=== PATIENT | female | born 1950 | race Asian ===

== ENCOUNTER 2016-04-24 09:50 | Emergency (ER) | payer OTHER ==
[~2016-04-24] VITALS: Ht 177.8 cm; Wt 45.5 kg
[2016-04-24 10:08] VITALS: Ht 177.8 cm; Wt 45.5 kg
[2016-04-24] MEDS ORDERED: ACETAMINOPHEN 325 MG TAB PO ONE (10:30)
[2016-04-24] MEDS ORDERED: NICARDipine HCL 30 MG CAPSULE PO ONE (10:30)
[2016-04-24] MEDS ORDERED: SITA100T8 PO (10:43)
[2016-04-24] MEDS ORDERED: METO-429 PO (10:43)
[2016-04-24] MEDS ORDERED: AMOX1TAB10 PO (10:44)
[2016-04-24] MEDS ORDERED: AMOX1TAB9 PO (10:44)
[2016-04-24] MEDS ORDERED: GABA100C14 PO (10:45)
[2016-04-24] MEDS ORDERED: LANT3I SC (10:45)
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
[2016-04-24 11:52] VITALS: BP 120/68; PULSE 73; RESP 18
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
== END 2016-04-24 11:57 | disposition home or self-care (01) ==
LOC: E/R 09:50
DX: S06.0X0A Concussion without loss of consciousness, initial encounter (principal); I10 Essential (primary) hypertension; E11.9 Type 2 diabetes mellitus without complications; V49.59XA Passenger injured in collision with other motor vehicles in traffic accident, initial encounter; Z79.84 Long term (current) use of oral hypoglycemic drugs; Z79.4 Long term (current) use of insulin
CPT/HCPCS: 70450; 70486; 72125; Z7502; Z7610

== ENCOUNTER 2017-07-10 12:40 | Emergency (ER) | END 2017-07-10 18:26 | disposition home or self-care (01) ==

== ENCOUNTER 2018-06-23 20:57 | Inpatient (IN) | payer OTHER ==
[~2018-06-23] VITALS: Ht 160 cm; Wt 62.6 kg
[~2018-06-23 20:57] MED LIST: AMOX1TAB10 PO; ASPI-903 PO; CEPH-443 PO; GABA100C14 PO; IBUP-1561 PO; LANT3I SC; LOSA25TA12 PO; METF500T3 PO; METO-429 PO; SITA100T11 PO
[2018-06-23 22:55] VITALS: Ht 160 cm; Wt 62.6 kg
[2018-06-24] VITALS (15 sets, daily range): BP systolic 109–213; BP diastolic 55–91; PULSE 72–130; RESP 18–20
[2018-06-24] MEDS ORDERED: HYDROCODONE/APAP (5/325) TAB PO PRN
[2018-06-24] MEDS ORDERED: GABAPENTIN 300 MG CAP PO PRN
[2018-06-24] MEDS ORDERED: GLUCOSE GEL 15 GRAM TUBE PO PRN ×2 (01:00)
[2018-06-24] MEDS ORDERED: GLUCOSE GEL 15 GRAM TUBE BUCCAL PRN (01:00)
[2018-06-24] MEDS ORDERED: DEXTROSE 50% 50 ML SYRINGE IV PRN ×2 (01:00)
[2018-06-24] MEDS ORDERED: GLUCAGON 1 MG INJ IM PRN (01:00)
[2018-06-24] MEDS: ACCU-CHEK XX SCH (02:00)
[2018-06-24] MEDS ORDERED: LOSA100T15 PO (05:02)
[2018-06-24] MEDS ORDERED: ASPI-817 PO (05:02)
[2018-06-24] MEDS ORDERED: METF500T24 PO (05:02)
[2018-06-24] MEDS ORDERED: SITA100T11 PO (05:02)
[2018-06-24] MEDS ORDERED: GABA300C16 PO (05:02)
[2018-06-24] MEDS ORDERED: ATOR20TA38 PO (05:02)
[2018-06-24] MEDS ORDERED: METO-429 PO (05:02)
[2018-06-24] MEDS ORDERED: FURO20TA3 PO (05:02)
[2018-06-24] MEDS ORDERED: LATA2.5D2 BOTH EYES (05:02)
[2018-06-24] MEDS: ONDANSETRON 4 MG INJ IV PRN ×2 (06:13→15:55)
[2018-06-24] MEDS: PANTOPRAZOLE (EC) 40 MG TAB PO SCH (06:13)
[2018-06-24] MEDS: PIPER-TAZO 3.375 GM IV (PMX) 100 ML IVPB SCH ×3 (06:14→21:13)
[2018-06-24] MEDS: ACETAMINOPHEN 325 MG TAB PO PRN ×2 (06:14→15:34)
[2018-06-24] MEDS: INSULIN ASPART [NOVOLOG] 3 ML PEN SC SCH ×4 (08:00→21:07)
[2018-06-24] MEDS ORDERED: FUROSEMIDE 20 MG TAB PO SCH (09:00)
[2018-06-24] MEDS ORDERED: FISH OIL 1,000 MG CAP PO ONE (09:00)
[2018-06-24] MEDS: METOPROLOL 50 MG TAB PO SCH (09:04)
[2018-06-24] MEDS: LOSARTAN 50 MG TAB PO SCH (09:05)
[2018-06-24] MEDS: ASPIRIN 81 MG TAB PO SCH (09:05)
[2018-06-24] MEDS ORDERED: SOD CHLORIDE 0.9% 1,000 ML IV SCH (11:00)
--- NOTE | 2018-06-24 11:38 | QN ---
Documentation Comment pt seen and examined MARIZA BARRERA MD June 24, 2018 11:38
[2018-06-24] MEDS ORDERED: ASPIRIN (EC) 81 MG TAB PO SCH (12:00)
[2018-06-24] MEDS: ASPIRIN (EC) 81 MG TAB PO SCH (13:07)
--- NOTE | 2018-06-24 13:38 | HP ---
DATE OF ADMISSION: 06/23/2018 REASON FOR ADMISSION: Transferred from [facility] secondary to sepsis. HISTORY OF PRESENTING ILLNESS: This is a 68-year-old female with a past medical history of diabetes, hypertension, hyperlipidemia, who was transferred from [facility] secondary to sepsis. Acc ording to the patient who was brought in by the daughter, the patient was having some weakness and ch ills for the past few days. The patient was also having some cough with no sputum production for the past few days. The patient denied any nausea, vomiting, diarrhea. She went to [facility]. Labs showed sodium of 132, potassium was 4.2, chloride 96, bicarbonate 22, BUN of 22, creatinine 1. 23. White count was 20.2, hemoglobin 11.2, platelet count 326. The patient had a chest x-ray that w as negative for any pneumonia. UA had showed 100 protein, 1+ blood, 150 glucose. The patient was gi asuncion IV fluids, Rocephin and was transferred due to insurance reasons. PAST MEDICAL HISTORY 1. Diabetes for the last 40 years. 2. Hypertension. 3. Hyperlipidemia. 4. Diabetic neuropathy. 5. History of hyponatremia. ALLERGIES: NONE. MEDICATIONS TAKING AT HOME: 1. Atorvastatin 20. 2. Losartan. 3. Metoprolol 50. 4. Aspirin 81. 5. Gabapentin. 6. Ibuprofen. 7. Lasix 20. 8. Latanoprost eyedrops. 9. Lantus 30 q.p.m. 10. Metformin. 11. Januvia. 12. Humalog. SOCIAL HISTORY: No history of smoking, alcohol or any drug use. Currently lives at home with family . REVIEW OF SYSTEMS: The patient had some cough. Denies any orthopnea, PND, lower extremity edema. T he patient was complaining of chills and weakness. Denies any dysuria, urinary urgency, hesitancy. Denies any rash. Denies any focal neurological deficit. PHYSICAL EXAMINATION: VITAL SIGNS: Currently temperature 100.2, heart rate 108 at rest, blood pressure 132/59, saturating 98%. GENERAL: The patient is awake, alert, oriented, does not appear to be in any acute distress. HEENT: Pupils are equal, round, reactive to light. NECK: Supple. No JVD. HEART: Regular rate and rhythm. LUNGS: Clear to auscultate bilaterally. ABDOMEN: Soft, nontender, nondistended, positive normoactive bowel sounds. EXTREMITIES: Trace edema. NEUROLOGIC: Nonfocal. LABORATORY DATA: BUN of 21, creatinine 1.09. Glucose is 240. Calcium 8.2. White count here is 25. 0, hemoglobin 9.0, platelet count 240. ASSESSMENT AND PLAN: This is a 68-year-old female who presented with: 1. Sepsis, likely secondary to urinary tract infection. 2. Cough, however, no evidence of bronchitis and chest x-ray was clear. 3. Urinary tract infection. 4. History of diabetes. 5. Hypertension. 6. Fever secondary to #1. 7. Hyperlipidemia. 8. History of diabetic neuropathy. 9. History of hyponatremia. PLAN: At this period of time, the patient is admitted to [facility]. We will continue the patient on NS. The patient will be started on Zosyn. We will send for urine cultures and blood cultures. We will also follow up the stool cultures from [place]. The patient will be on a strict diabetic control. Rest of the treatment will depend on the patient's hospitalization course. Dictated By: MARIZA DALTON/TANYA Conf#: [id number] DID#: [id number] CC: CHRISTAL REEDER MD;*End*
[2018-06-24] MEDS ORDERED: POTASSIUM CHLORIDE (SR) 20 MEQ TAB PO STA (20:11)
[2018-06-24] MEDS: ALBUTEROL/IPRATROPIUM (NEB) 3 ML AMP HHN SCH (20:25)
[2018-06-24] MEDS: ATORVASTATIN 20 MG TAB PO SCH ×2 (20:40→20:41)
[2018-06-24] MEDS: GABAPENTIN 100 MG CAP PO SCH (20:40)
[2018-06-24] MEDS: LATANOPROST 0.005% 2.5 ML OPH BOTH EYES SCH ×2 (20:48→21:00)
[2018-06-24] MEDS: INSULIN GLARGINE [LANTus] (100 UNITS/ML) SYG SC SCH (21:07)
[2018-06-24] MEDS ORDERED: MAGNESIUM SULFATE 2 GM/50 ML 50 ML IVPB ONE (21:30)
[2018-06-25] VITALS (12 sets, daily range): BP systolic 118–150; BP diastolic 54–75; PULSE 73–125; RESP 18–20
[2018-06-25] MEDS: ACETAMINOPHEN 325 MG TAB PO PRN (02:48)
[2018-06-25] MEDS: ACCU-CHEK XX SCH (02:51)
[2018-06-25] MEDS: PIPER-TAZO 3.375 GM IV (PMX) 100 ML IVPB SCH ×3 (05:52→21:38)
[2018-06-25] MEDS: PANTOPRAZOLE (EC) 40 MG TAB PO SCH (05:52)
[2018-06-25] MEDS: INSULIN ASPART [NOVOLOG] 3 ML PEN SC SCH ×5 (08:00→21:01)
[2018-06-25] MEDS: ASPIRIN (EC) 81 MG TAB PO SCH (08:00)
[2018-06-25] MEDS: METOPROLOL 50 MG TAB PO SCH ×2 (08:01→20:48)
[2018-06-25] MEDS: LOSARTAN 50 MG TAB PO SCH (08:01)
[2018-06-25] MEDS: ALBUTEROL/IPRATROPIUM (NEB) 3 ML AMP HHN SCH ×4 (08:43→21:52)
[2018-06-25] MEDS: ASPIRIN 81 MG TAB PO SCH (08:43)
--- NOTE | 2018-06-25 14:18 | PN ---
Date/Time of Note Date/Time of Note DATE: 06/25/18 TIME: 14:15 Assessment/Plan VTE Prophylaxis Risk score (from Ns)>0 risk: 3 SCD applied (from [facility] [place] Yes Pharmacological prophylaxis: NA/contraindicated Pharm contraindication: low risk/ambulating Lines/Catheters IV C[facility]ter Type (from [facility] [place] Assessment/Plan Hospital Course his is a 68-year-old female who presented with: 1. Sepsis, likely secondary to urinary tract infection. 2. Cough, now with sob , crackles on exam 3. Urinary tract infection. 4. History of diabetes. 5. Hypertension. 6. Fever secondary to #1. 7. Hyperlipidemia. 8. History of diabetic neuropathy. 9. History of hyponatremia. Plan - wbc 21, fu cx > also from [place] - chest xray - iv spot lasix - will also get ECHO - iD consult - urology consult for hydro - add mealtime insulin - labs in am Result Diagram: 06/25/18 1106 06/25/18 1106 Results 24hrs Laboratory Tests Test 06/24/18 17:16 06/24/18 17:41 06/24/18 20:35 06/25/18 02:42 Bedside Glucose 208 203 226 H Sodium Level 133 L Potassium Level 3.8 Chloride Level 102 Carbon Dioxide Level 23 Anion Gap 8 Blood Urea Nitrogen 22 H Creatinine 1.22 H Est Glomerular Filtrat 44 L Rate mL/min Glucose Level 195 Calcium Level 8.4 Phosphorus Level 2.4 L Magnesium Level 1.7 Test 06/25/18 07:46 06/25/18 11:06 06/25/18 12:00 Bedside Glucose 181 214 White Blood Count 21.4 H Red Blood Count 2.93 L Hemoglobin 8.5 L Hematocrit 26.0 L Mean Corpuscular Volume 88.7 Mean Corpuscular 29.0 Hemoglobin Mean Corpuscular 32.7 Hemoglobin Concent Red Cell Distribution 13.0 Width Platelet Count 223 Mean Platelet Volume 9.3 Immature Granulocytes % 1.200 H Neutrophils % 83.7 H Lymphocytes % 7.4 L Monocytes % 7.1 Eosinophils % 0.2 Basophils % 0.4 Nucleated Red Blood 0.0 Cells % Immature Granulocytes # 0.260 H Neutrophils # 17.9 H Lymphocytes # 1.6 Monocytes # 1.5 H Eosinophils # 0.0 Basophils # 0.1 Nucleated Red Blood 0.0 Cells # Sodium Level 135 Potassium Level 4.4 Chloride Level 104 Carbon Dioxide Level 23 Anion Gap 8 Blood Urea Nitrogen 19 Creatinine 1.07 H Est Glomerular Filtrat 51 L Rate mL/min Glucose Level 223 H Calcium Level 8.3 L Subjective 24 Hr Interval Summary Free Text/Dictation Some shortness of breath yesterday. WBC 21 Feels much better Exam/Review of Systems Exam Vitals Vital Signs Date Temp Pulse Resp B/P (MAP) Pulse Ox O2 O2 Flow FiO2 Time Delivery Rate 06/25/18 75 18 94 21 13:58 06/25/18 98.3 140/65 11:13 (90) 06/25/18 Room Air 07:12 Intake and Output 06/24/18 06/24/18 06/25/18 1515:00 23:00 07:00 IntakeIntake Total 100 ml 800 ml BalanceBalance 100 ml 800 ml Exam GENERAL: The patient is awake, alert, oriented, does not appear to be in any acute distress. HEENT: Pupils are equal, round, reactive to light. NECK: Supple. No JVD. HEART: Regular rate and rhythm. LUNGS: crackles on left ABDOMEN: Soft, nontender, nondistended, positive normoactive bowel sounds. EXTREMITIES: Trace edema. NEUROLOGIC: Nonfocal. Results Results 24hrs Laboratory Tests Test 06/24/18 17:16 06/24/18 17:41 06/24/18 20:35 06/25/18 02:42 Bedside Glucose 208 203 226 H Sodium Level 133 L Potassium Level 3.8 Chloride Level 102 Carbon Dioxide Level 23 Anion Gap 8 Blood Urea Nitrogen 22 H Creatinine 1.22 H Est Glomerular Filtrat 44 L Rate mL/min Glucose Level 195 Calcium Level 8.4 Phosphorus Level 2.4 L Magnesium Level 1.7 Test 06/25/18 07:46 06/25/18 11:06 06/25/18 12:00 Bedside Glucose 181 214 White Blood Count 21.4 H Red Blood Count 2.93 L Hemoglobin 8.5 L Hematocrit 26.0 L Mean Corpuscular Volume 88.7 Mean Corpuscular 29.0 Hemoglobin Mean Corpuscular 32.7 Hemoglobin Concent Red Cell Distribution 13.0 Width Platelet Count 223 Mean Platelet Volume 9.3 Immature Granulocytes % 1.200 H Neutrophils % 83.7 H Lymphocytes % 7.4 L Monocytes % 7.1 Eosinophils % 0.2 Basophils % 0.4 Nucleated Red Blood 0.0 Cells % Immature Granulocytes # 0.260 H Neutrophils # 17.9 H Lymphocytes # 1.6 Monocytes # 1.5 H Eosinophils # 0.0 Basophils # 0.1 Nucleated Red Blood 0.0 Cells # Sodium Level 135 Potassium Level 4.4 Chloride Level 104 Carbon Dioxide Level 23 Anion Gap 8 Blood Urea Nitrogen 19 Creatinine 1.07 H Est Glomerular Filtrat 51 L Rate mL/min Glucose Level 223 H Calcium Level 8.3 L Medications Medication Current Medications Pantoprazole (Protonix Tab) 40 mg DAILY@06 PO Last administered on 06/25/18 05:52; Admin Dose 40 MG; Start 06/24/18 at 06:00 Acetaminophen (Tylenol Tab) 650 mg Q6H PRN PO MILD PAIN(1-3)OR ELEVATED TEMP Last administered on 06/25/18 02:48; Admin Dose 650 MG; Start 06/24/18 at 00:00 Ondansetron HCl (Zofran Inj) 4 mg Q6H PRN IV NAUSEA AND/OR VOMITING Last administered on 06/24/18 15:55; Admin Dose 4 MG; Start 06/24/18 at 00:00 Piperacillin Sod/ Tazobactam Sod 100 ml @ 200 mls/hr Q8 IVPB Last administered on 06/25/18 13:18; Admin Dose 200 MLS/HR; Start 06/24/18 at 06:00 Acetaminophen/ Hydrocodone Bitart ([place] (5/325)) 1 tab Q6H PRN PO MODERATE PAIN LEVEL 4-6; Start 06/24/18 at 00:00 Losartan Potassium (Cozaar) 100 mg DAILY PO Last administered on 06/25/18 08:01; Admin Dose 100 MG; Start 06/24/18 at 09:00 Metoprolol Tartrate (Lopressor) 50 mg DAILY PO Last administered on 06/25/18 08:01; Admin Dose 50 MG; Start 06/24/18 at 09:00 Aspirin (Aspirin) 81 mg DAILY PO Last administered on 06/25/18 08:43; Admin Dose 81 MG; Start 06/24/18 at 09:00 Atorvastatin Calcium (Lipitor) 20 mg HS PO Last administered on 06/24/18 20:40; Admin Dose 20 MG; Start 06/24/18 at 21:00 Gabapentin (Neurontin) 300 mg BID PRN PO MUSCLE AND LEG CRAMPS; Start 06/24/18 at 00:00 Latanoprost (Xalatan) 1 drop HS BOTH EYES Last administered on 06/24/18at 20:48; Admin Dose 1 DROP; Start 06/24/18 at 21:00 Diagnostic Test (Pha) (Accu-Chek) 1 ea 02 XX Last administered on 06/25/18at 02:51; Admin Dose 1 EA; Start 06/24/18 at 02:00 Insulin Aspart (Novolog Insulin Pen) NOVOLOG *MODERATE* ALGORITHM WITH MEALS BEDTIME SC Last administered on 06/25/18at 12:03; Admin Dose 4 UNIT; Start 06/24/18 at 08:00 Miscellaneous Information 1 ea NOTE XX ; Start 06/24/18 at 01:00 Glucose (Glutose) 15 gm Q15M PRN PO DECREASED GLUCOSE; Start 06/24/18 at 01:00 Glucose (Glutose) 22.5 gm Q15M PRN PO DECREASED GLUCOSE; Start 06/24/18 at 01:00 Dextrose (D50w Syringe) 25 ml Q15M PRN IV DECREASED GLUCOSE; Start 06/24/18 at 01:00 Dextrose (D50w Syringe) 50 ml Q15M PRN IV DECREASED GLUCOSE; Start 06/24/18 at 01:00 Glucagon (Glucagen) 1 mg Q15M PRN IM DECREASED GLUCOSE; Start 06/24/18 at 01:00 Glucose (Glutose) 15 gm Q15M PRN BUCCAL DECREASED GLUCOSE; Start 06/24/18 at 01:00 Atorvastatin Calcium (Lipitor) 20 mg QHS PO ; Start 06/24/18 at 21:00 Gabapentin (Neurontin) 100 mg QPM PO Last administered on 06/24/18at 20:40; Admin Dose 100 MG; Start 06/24/18 at 21:00 Insulin Glargine (Lantus) 30 units QPM SC Last administered on 06/24/18at 21:07; Admin Dose 30 UNITS; Start 06/24/18 at 21:00 Latanoprost (Xalatan) 1 drop QHS BOTH EYES ; Start 06/24/18 at 21:00 Aspirin (Halfprin) 81 mg DAILY PO Last administered on 06/25/18at 08:00; Admin Dose 81 MG; Start 06/24/18 at 12:00 Albuterol/ Ipratropium (Duoneb) 3 ml Q4HWA RESP THERAPY HHN Last administered on 06/25/18at 13:58; Admin Dose 3 ML; Start 06/24/18 at 17:00 Clonidine (Catapres) 0.1 mg Q6H PRN PO ELEVATED BLOOD PRESSURE; Start 06/24/18 at 16:30 Miscellaneous Information (* Miscellaneous Pharmacy Order) Discontinue current oral sulfonylur... ONCE ONCE XX ; Start 06/25/18 at 14:30; Stop 06/25/18 at 14:31 Insulin Aspart (Novolog Insulin Pen) 4 unit WITH MEALS SC ; Start 06/25/18 at 18:00 Miscellaneous Information (* Miscellaneous Pharmacy Order) HYPOGLYCEMIA PROTOCOL w... ONCE ONCE XX ; Start 06/25/18 at 14:30; Stop 06/25/18 at 14:31 Miscellaneous Information (* Miscellaneous Pharmacy Order) Discontinue all previ... ONCE ONCE XX ; Start 06/25/18 at 14:30; Stop 06/25/18 at 14:31 MARIZA BARRERA MD June 25, 2018 14:18
[2018-06-25] MEDS ORDERED: FUROSEMIDE 20 MG INJ IV ONE (14:30)
--- NOTE | 2018-06-25 16:43 | CONS ---
DATE OF ADMISSION: 06/23/2018 DATE OF CONSULTATION: 06/25/2018 TYPE OF CONSULTATION: Cardiology. REASON FOR CONSULTATION: Hypertension, tachycardia, abnormal electrocardiogram. REQUESTING PHYSICIAN: Lindsey Barrera MD HISTORY OF PRESENT ILLNESS: Ms. Mcpherson is a very pleasant 68-year-old female with a history of hypert ension, dyslipidemia, diabetes mellitus, diabetic neuropathy, who initially presented to outside hosp ital at [facility] with complaints of generalized weakness, fevers, chills ongoing for about 2 to 3 d ays. At outside hospital, the patient has stable vital signs. Denies chest pain. Labs are notable for sodium was low of 132, potassium 4.2, creatinine was mildly elevated at 1.23, BUN of 22. White b lood cell count was elevated at 20.2, hemoglobin 11.2, platelet count 326. UA is borderline. The juan r mclaughlin was thereafter transferred to [facility] due to insurance reasons. Additionall y noted the patient underwent a chest x-ray at outside hospital with clear lungs. Since arrival at [facility], the patient with relatively stable blood pressure, high fever up to 102 in the setting of tachycardia up to the 130s even most recently has been back in the 80s. At this ti de, the patient denies chest pain, palpitations. She does complain of mild shortness of breath. PAST MEDICAL HISTORY: As above in HPI. MEDICATIONS CURRENTLY IN HOSPITAL: 1. Insulin. 2. Lipitor 20 mg at bedtime. 3. Xalatan eyedrops. 4. Neurontin. 5. Lantus. 6. Aspirin 81 mg daily. 7. Losartan 100 mg daily. 8. Metoprolol tartrate 50 mg daily. 9. Aspirin 81 mg daily. 10. Insulin sliding scale. 11. Protonix. 12. Zosyn. ALLERGIES: NO KNOWN DRUG ALLERGIES. SOCIAL HISTORY: No current tobacco, EtOH or illicit drug use. FAMILY HISTORY: No history of sudden cardiac or early CAD. REVIEW OF SYSTEMS: As above in HPI. CONSTITUTIONAL: Positive fevers, chills. PULMONARY: Mild shortness of breath. CARDIOVASCULAR: No current chest pain. Tachycardia. GASTROINTESTINAL: No vomiting. GENITOURINARY: No hematuria. MUSCULOSKELETAL: Degenerative joint disease. PSYCHIATRIC: The patient has depression. NEUROLOGIC: No documented history of CVA. ENDOCRINE: Diabetes mellitus. PHYSICAL EXAMINATION: VITAL SIGNS: Temperature of 98.3, blood pressure 140/65, pulse 72, respiratory rate 20, satting 95%. GENERAL: The patient is alert, awake, in no acute distress. NECK: JVP approximately is 8 to 9 cm of water. CHEST: Fair air movement throughout. HEART: Regular rate and rhythm. Normal S1, S2, I/ systolic murmur, nondisplaced PMI. ABDOMEN: Positive bowel sounds, soft. EXTREMITIES: No significant pitting edema, 1+ pulses bilateral posterior tibial. LABORATORY DATA: Most recently from today, white blood cell count of 21.4, hemoglobin 8.5, platelet count of 223. Sodium of 137, potassium 4.0, creatinine 1.0, BUN of 21. UA negative. IMAGING STUDIES: Renal ultrasound from 06/24/2018 revealing mild left-sided hydronephrosis, simple c yst left kidney. ELECTROCARDIOGRAM: From 06/24/2018 here at [facility]: Sinus tachycardia, rate of 106, normal axis, normal intervals, nonspecific ST and T-wave abnormalities. IMPRESSION: 1. Abnormal electrocardiogram, assess for acute coronary syndrome. 2. Hypertension, mildly elevated. 3. Shortness of breath, assess for congestive heart failure. 4. Questionable urinary tract infection. 5. Fevers. 6. Generalized weakness. 7. Leukocytosis. 8. Diabetes mellitus. RECOMMENDATIONS: 1. At this time, we would maintain the patient on telemetry monitoring to follow rhythm and rate con trol closely. 2. We would check serial EKGs to assess for any ongoing changes, repeat EKG in the morning, EKG for any complaints of chest pain or change in rhythm. 3. Complete a rule out for myocardial infarction to ensure the patient's constellation of symptoms i s not result in acute coronary syndromes such as acute myocardial infarction. 4. Follow the patient's 2D echo done for assessment of ejection fraction, wall motion, rule any star r valve abnormalities. 5. Continue the patient's current statin therapy and adjust it according to a fasting lipid panel to be checked. 6. Continue the patient's aspirin for prophylaxis against cardiovascular events. 7. We will continue the patient's metoprolol tartrate and will change to b.i.d. dosing to improve ef ficacy and continue the patient's baseline losartan. 8. Continue patient's antibiotics and follow up all culture data. Thank you for allowing me to take part in the care of this patient. I will continue to follow her ve ry closely with you with further recommendations will be made as the patient progresses through her [facility] clinical course. Dictated By: KAYCEE SORTO/TANYA Conf#: [id number] DID#: [id number] CC: LINDSEY BARRERA; LUAN WESLEY MD; CHRISTAL REEDER MD;*End*
--- NOTE | 2018-06-25 16:50 | RADRPT ---
Echocardiogram Report Patient Name: MENDEZ PALMERPatient ID: [id number] : 1950 (68y 2m)Study Date: 06/25/2018 3:06:21 PM Gender: FAccession #: [id number] Tech: Krzysztof Cruz [facility] Location: [facility] Ref.Physician: KAYCEE VILCHIS Height(Cm): BSA: Weight(Kg): Quality: AdequateAccount #: Procedures: Echocardiographic Report: Transthoracic echocardiogram with complete 2D, M-Mode, and doppler examination. Indications: Hypertension. Measurements: 2D/M Mode Doppler Measurement Value Normal Range Measurement Value Normal Range LVIDd 2D 4.1 [ 3.8 - 5.2 ] cm AV Peak [place] 1.5 [ 100.0 - 170.0 ] cm/sec LVIDs 2D 2.5 [ 2.2 - 3.5 ] cm AV Peak PG 8.0 [ 2.0 - 9.0 ] mmHg LVPWd 2D 0.9 [ 0.6 - 0.9 ] cm LVOT Peak [place] 0.9 [ 70.0 - 110.0 ] cm/sec IVSd 2D 1.4 [ 0.6 - 0.9 ] cm LVOT Peak PG 3.0 [ 2.0 - 6.0 ] mmHg AoR Diam 2D 2.3 [ 2.3 - 3.1 ] cm MV E Peak [place] 0.8 [ 60.0 - 130.0 ] cm/sec EDV 2D 75.5 [ 46.0 - 106.0 ] ml MV A Peak [place] 0.9 [ 100.0 - 120.0 ] cm/sec ESV 2D 21.2 [ 14.0 - 42.0 ] ml MV E/A 0.8 [ 0.8 - 1.5 ] ratio EF 2D 71.9 [ 54.0 - 74.0 ] percent MV Decel Time 148 [ 104 - 258 ] msec LA Dimen 2D 3.1 [ 2.7 - 3.8 ] cm Lat E` [place] 0.1 [ 10.0 - 15.0 ] cm/sec Lateral E/E` 8.2 [ 1.0 - 2.0 ] ratio MV E/A 0.8 [ 0.8 - 1.5 ] ratio TR Peak [place] 2.8 [ 100.0 - 280.0 ] cm/sec TR Peak PG 31.0 mmHg Findings: Left Ventricle: Normal left ventricular systolic function. Normal left ventricular cavity size. Mild asymmetric septal hypertrophy. Ejection fraction is visually estimated at 55-60 %. Tissue Doppler/Mitral Doppler indices are consistent with impaired relaxation (Stage I diastolic dysfunction). Right Ventricle: Normal right ventricular size. Normal right ventricular systolic function. Left Atrium: The left atrium is normal in size. Right Atrium: The right atrium is normal in size. Mitral Valve: Mild mitral leaflet calcification. Mild mitral annular calcification. Trace mitral regurgitation. Aortic Valve: No hemodynamically significant aortic stenosis by doppler. Aortic cusps appear mildly calcified. Tricuspid Valve: Normal appearance of the tricuspid valve. Estimated peak PA systolic pressure 31 mmHg. There is mild tricuspid regurgitation. Pericardium: Normal pericardium with no significant pericardial effusion. Aorta: Normal aortic root. IVC: Normal size and normal respiratory collapse consistent with normal right atrial pressure. Conclusions: Normal left ventricular systolic function. Normal left ventricular cavity size. Mild asymmetric septal hypertrophy. Ejection fraction is visually estimated at 55-60 %. Tissue Doppler/Mitral Doppler indices are consistent with impaired relaxation (Stage I diastolic dysfunction). Mild mitral leaflet calcification. Mild mitral annular calcification. Trace mitral regurgitation. Normal appearance of the tricuspid valve. Estimated peak PA systolic pressure 31 mmHg. There is mild tricuspid regurgitation. Electronically Signed By: Kaycee Vilchis 2018-06-25 16:49:46 PDT
--- NOTE | 2018-06-25 16:51 | CONS ---
DATE OF ADMISSION: 06/23/2018 DATE OF CONSULTATION: 06/25/2018 TYPE OF CONSULTATION: Infectious disease. REASON FOR CONSULTATION: Antibiotic management. HISTORY OF PRESENT ILLNESS: Paola Mcpherson is a 68-year-old female transferred from [facility] with sepsis. Her problems include: 1. Adult-onset diabetes mellitus. 2. Hypertension. 3. Hyperlipidemia. The patient was having weakness and chills over the last few days as well as cough without sputum pro duction. She denied any nausea, vomiting, diarrhea. She went to [facility]. BUN and creat inine was 22/1.23. Her white count was 20,200, hemoglobin 11.2, platelet count 326. Chest x-ray was negative for pneumonia. UA showed 100 protein, 1+ blood and 150 glucose. She was started on IV Serge ephin and transferred to this hospital. She has in addition to the aforementioned problems diabetic neuropathy and history of hyponatremia. PAST MEDICAL HISTORY: As outlined. FAMILY HISTORY: Noncontributory. SOCIAL HISTORY: She does not smoke, drink or abuse drugs. She lives at home with her family. ALLERGIES: NONE TO PENICILLIN, SULFA OR FOODS. MEDICATIONS: Per chart. REVIEW OF SYSTEMS: Noncontributory. PHYSICAL EXAMINATION: VITAL SIGNS: Temperature 100.2, heart rate 108, blood pressure 132/59. SKIN: Without generalized rash. HEENT: Within normal limits. NECK: Supple. LYMPH NODES: None palpable. CHEST: Clear to P and A with decreased breath sounds at the bases. HEART: Without murmur or gallop. ABDOMEN: Soft and nontender without organosplenomegaly or masses. EXTREMITIES: Without cyanosis, clubbing or edema. RECTAL AND GENITAL: Deferred. NEUROLOGIC: No focal neurological abnormality. HOSPITAL COURSE: Her white count today is 25,000. BUN and creatinine is 21/1.09. The patient is se ptic possibly from the urinary tract. She also has a cough with no evidence of bronchitis. Her ches t x-ray is clear. Blood cultures so far are negative. Urine cultures are negative. She was started on Zosyn. We will continue her on Zosyn until we get more information with regards to her cultures, but so far blood cultures and urine cultures are negative. I will dictate my findings to Dr. Adamson . I want to thank her for asking us to see this walt lady in consultation. Dictated By: LUAN WESLEY MD, JD/TANYA Conf#: [id number] DID#: [id number] CC: CHRISTAL REEDER MD;*EndCC*
[2018-06-25] MEDS ORDERED: DILTIAZEM 25 MG INJ IV PRN (19:00)
[2018-06-25] MEDS: DIGOXIN 500 MCG INJ IV SCH (20:06)
[2018-06-25] MEDS: ATORVASTATIN 20 MG TAB PO SCH ×2 (20:47)
[2018-06-25] MEDS: LATANOPROST 0.005% 2.5 ML OPH BOTH EYES SCH ×2 (20:47→20:48)
[2018-06-25] MEDS: GABAPENTIN 100 MG CAP PO SCH (20:48)
[2018-06-25] MEDS: INSULIN GLARGINE [LANTus] (100 UNITS/ML) SYG SC SCH (21:01)
[2018-06-25] MEDS: ENOXAPARIN 60 MG/0.6 ML SYG SC SCH (21:02)
[2018-06-26] VITALS (14 sets, daily range): BP systolic 140–184; BP diastolic 66–83; PULSE 74–152; RESP 18–20
[2018-06-26] MEDS: DIGOXIN 500 MCG INJ IV SCH (01:43)
[2018-06-26] MEDS ORDERED: ACCU-CHEK XX SCH (02:00)
[2018-06-26] MEDS: ACCU-CHEK XX SCH (02:50)
[2018-06-26] MEDS: PIPER-TAZO 3.375 GM IV (PMX) 100 ML IVPB SCH ×3 (05:30→21:20)
[2018-06-26] MEDS: PANTOPRAZOLE (EC) 40 MG TAB PO SCH (05:30)
[2018-06-26] MEDS: ASPIRIN (EC) 81 MG TAB PO SCH (08:00)
[2018-06-26] MEDS: METOPROLOL 50 MG TAB PO SCH (08:02)
[2018-06-26] MEDS: LOSARTAN 50 MG TAB PO SCH (08:03)
[2018-06-26] MEDS: INSULIN ASPART [NOVOLOG] 3 ML PEN SC SCH ×7 (08:21→21:37)
[2018-06-26] MEDS: ENOXAPARIN 60 MG/0.6 ML SYG SC SCH ×2 (08:21→21:24)
[2018-06-26] MEDS: ALBUTEROL/IPRATROPIUM (NEB) 3 ML AMP HHN SCH ×4 (08:25→20:19)
--- NOTE | 2018-06-26 11:17 | CONS ---
DATE OF ADMISSION: 06/23/2018 DATE OF CONSULTATION: REQUESTING PHYSICIAN: Dr. Varela. HISTORY OF PRESENT ILLNESS: Paola is a 67-year-old female with a history of diabetes, hypertension and hyperlipidemia who was transferred from [facility] for a urinary tract infection associa kylee with a low grade fever and white blood count to 20,000. Apparently she was placed on Rocephin whi le she was at [place]. The patient was transferred to [facility] for continuation of car e. PAST MEDICAL HISTORY: Diabetes, hypertension, hyperlipidemia. HOME MEDICATIONS: 1. Atorvastatin. 2. Losartan. 3. Metoprolol. 4. Aspirin. 5. Gabapentin. 6. Ibuprofen. 7. Lasix. 8. Lantus. 9. Metformin. 10. Januvia. 11. Humalog. PHYSICAL EXAMINATION: VITAL SIGNS: Blood pressure 143/66, temperature 99.2, heart rate 80, respiratory rate 19. ABDOMEN: Soft, nondistended, nontender, no palpable masses. No CVA tenderness. No masses. LUNGS breath sounds bilaterally. HEART: Regular rate and rhythm. LABORATORY DATA: Yesterday, the patient's white blood count 21,000. Today, her white count is 15.6, hemoglobin 9.3. Urinalysis, few bacteria, nitrite and leukocyte esterase negative. Creatinine 0.92 . Urine culture no growth at 24 hours. Blood culture negative. Chest x-ray: Mild cardiomegaly wit h bibasilar atelectasis. Renal ultrasound, mild left hydronephrosis, simple cyst in the left kidney. IMPRESSION: Urinary tract infection with negative urine culture on IV antibiotic therapy, resolving leukocytosis, left hydronephrosis on renal ultrasound. PLAN: CT urogram, continue antibiotic therapy as per medicine. Further intervention evaluation pend ing clinical course and results of above. Dictated By: ISA WRIGHT MD EGR/NTS Conf#: [id number] DID#: [id number] CC: CHRISTAL REEDER MD; LUAN WESLEY MD;*End*
--- NOTE | 2018-06-26 15:21 | PN ---
Date/Time of Note Date/Time of Note DATE: 06/26/18 TIME: 15:21 Assessment/Plan VTE Prophylaxis Risk score (from Ns)>0 risk: 4 SCD applied (from Ns): Yes Pharmacological prophylaxis: NA/contraindicated Pharm contraindication: low risk/ambulating Lines/Catheters IV C[facility]ter [facility]from [facility] [place] Lock Assessment/Plan Hospital Course his is a 68-year-old female who presented with: 1. Sepsis, likely secondary to urinary tract infection.no cx +positive so far 2. Cough, now with sob , crackles on exam ? hx TB in past 3. Urinary tract infection. 4. History of diabetes. 5. Hypertension. 6. Fever secondary to #1. 7. Hyperlipidemia. 8. History of diabetic neuropathy. 9. History of hyponatremia. 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 Plan - wbc 21>15 - cw MTP/Lovenox for Afib - cw iv zosyn - CT a+p for hydro - fu ID/ Urology/cards recs - cw mealtime insulin/lantus - labs in am Result Diagram: 06/26/18 0550 06/26/18 0550 Results 24hrs Laboratory Tests Test 06/25/18 17:27 06/25/18 20:45 06/26/18 01:41 06/26/18 05:31 Bedside Glucose 221 H 236 H 161 137 Test 06/26/18 05:50 06/26/18 07:58 06/26/18 11:53 White Blood Count 15.6 #H Red Blood Count 3.28 L Hemoglobin 9.3 L Hematocrit 28.4 L Mean Corpuscular Volume 86.6 Mean Corpuscular 28.4 L Hemoglobin Mean Corpuscular 32.7 Hemoglobin Concent Red Cell Distribution 12.9 Width Platelet Count 266 Mean Platelet Volume 9.2 Immature Granulocytes % 0.500 H Neutrophils % 75.3 Lymphocytes % 13.2 L Monocytes % 10.0 Eosinophils % 0.6 Basophils % 0.4 Nucleated Red Blood 0.0 Cells % Immature Granulocytes # 0.080 H Neutrophils # 11.7 H Lymphocytes # 2.1 Monocytes # 1.6 H Eosinophils # 0.1 Basophils # 0.1 Nucleated Red Blood 0.0 Cells # Sodium Level 139 Potassium Level 3.9 Chloride Level 105 Carbon Dioxide Level 24 Anion Gap 10 Blood Urea Nitrogen 14 Creatinine 0.92 Est Glomerular Filtrat > 60 Rate mL/min Glucose Level 140 # Calcium Level 8.6 Phosphorus Level 2.7 Magnesium Level 2.2 Triglycerides Level 164 H Cholesterol Level 121 LDL Cholesterol, 59 Calculated HDL Cholesterol 29 L Cholesterol/HDL Ratio 4.1 Bedside Glucose 164 159 Subjective 24 Hr Interval Summary Free Text/Dictation had Afib episode this am, now sinus however feels a lot better today Exam/Review of Systems Exam Vitals Vital Signs Date Temp Pulse Resp B/P (MAP) Pulse Ox O2 O2 Flow FiO2 Time Delivery Rate 06/26/18 72 18 97 21 12:25 06/26/18 98.1 153/68 11:21 (96) 06/25/18 Room Air 07:12 Intake and Output 06/25/18 06/25/18 06/26/18 1414:59 22:59 06:59 IntakeIntake Total 950 ml 100 ml BalanceBalance 950 ml 100 ml Exam GENERAL: The patient is awake, alert, oriented, does not appear to be in any acute distress. HEENT: Pupils are equal, round, reactive to light. NECK: Supple. No JVD. HEART: Regular rate and rhythm. LUNGS: crackles on left upper lobe ABDOMEN: Soft, nontender, nondistended, positive normoactive bowel sounds. EXTREMITIES: Trace edema. NEUROLOGIC: Nonfocal. Results Results 24hrs Laboratory Tests Test 06/25/18 17:27 06/25/18 20:45 06/26/18 01:41 06/26/18 05:31 Bedside Glucose 221 H 236 H 161 137 Test 06/26/18 05:50 06/26/18 07:58 06/26/18 11:53 White Blood Count 15.6 #H Red Blood Count 3.28 L Hemoglobin 9.3 L Hematocrit 28.4 L Mean Corpuscular Volume 86.6 Mean Corpuscular 28.4 L Hemoglobin Mean Corpuscular 32.7 Hemoglobin Concent Red Cell Distribution 12.9 Width Platelet Count 266 Mean Platelet Volume 9.2 Immature Granulocytes % 0.500 H Neutrophils % 75.3 Lymphocytes % 13.2 L Monocytes % 10.0 Eosinophils % 0.6 Basophils % 0.4 Nucleated Red Blood 0.0 Cells % Immature Granulocytes # 0.080 H Neutrophils # 11.7 H Lymphocytes # 2.1 Monocytes # 1.6 H Eosinophils # 0.1 Basophils # 0.1 Nucleated Red Blood 0.0 Cells # Sodium Level 139 Potassium Level 3.9 Chloride Level 105 Carbon Dioxide Level 24 Anion Gap 10 Blood Urea Nitrogen 14 Creatinine 0.92 Est Glomerular Filtrat > 60 Rate mL/min Glucose Level 140 # Calcium Level 8.6 Phosphorus Level 2.7 Magnesium Level 2.2 Triglycerides Level 164 H Cholesterol Level 121 LDL Cholesterol, 59 Calculated HDL Cholesterol 29 L Cholesterol/HDL Ratio 4.1 Bedside Glucose 164 159 Medications Medication Current Medications Pantoprazole (Protonix Tab) 40 mg DAILY@06 PO Last administered on 06/26/18 05:30; Admin Dose 40 MG; Start 06/24/18 at 06:00 Acetaminophen (Tylenol Tab) 650 mg Q6H PRN PO MILD PAIN(1-3)OR ELEVATED TEMP Last administered on 06/25/18 02:48; Admin Dose 650 MG; Start 06/24/18 at 00:00 Ondansetron HCl (Zofran Inj) 4 mg Q6H PRN IV NAUSEA AND/OR VOMITING Last administered on 06/24/18 15:55; Admin Dose 4 MG; Start 06/24/18 at 00:00 Piperacillin Sod/ Tazobactam Sod 100 ml @ 200 mls/hr Q8 IVPB Last administered on 06/26/18 13:24; Admin Dose 200 MLS/HR; Start 06/24/18 at 06:00 Acetaminophen/ Hydrocodone Bitart ([place] (5/325)) 1 tab Q6H PRN PO MODERATE PAIN LEVEL 4-6; Start 06/24/18 at 00:00 Losartan Potassium (Cozaar) 100 mg DAILY PO Last administered on 06/26/18 08:03; Admin Dose 100 MG; Start 06/24/18 at 09:00 Atorvastatin Calcium (Lipitor) 20 mg HS PO Last administered on 06/25/18 20:47; Admin Dose 20 MG; Start 06/24/18 at 21:00 Gabapentin (Neurontin) 300 mg BID PRN PO MUSCLE AND LEG CRAMPS; Start 06/24/18 at 00:00 Latanoprost (Xalatan) 1 drop HS BOTH EYES Last administered on 06/25/18 20:47; Admin Dose 1 DROP; Start 06/24/18 at 21:00 Diagnostic Test (Pha) (Accu-Chek) 1 ea 02 XX Last administered on 5/9/19at 02:50; Admin Dose 1 EA; Start 06/24/18 at 02:00 Insulin Aspart (Novolog Insulin Pen) NOVOLOG *MODERATE* ALGORITHM WITH MEALS B EDTIME SC Last administered on 06/26/18at 12:07; Admin Dose 2 UNIT; Start 06/24/18 at 08:00 Miscellaneous Information 1 ea NOTE XX ; Start 06/24/18 at 01:00 Glucose (Glutose) 15 gm Q15M PRN PO DECREASED GLUCOSE; Start 06/24/18 at 01:00 Glucose (Glutose) 22.5 gm Q15M PRN PO DECREASED GLUCOSE; Start 06/24/18 at 01:00 Dextrose (D50w Syringe) 25 ml Q15M PRN IV DECREASED GLUCOSE; Start 06/24/18 at 01:00 Dextrose (D50w Syringe) 50 ml Q15M PRN IV DECREASED GLUCOSE; Start 06/24/18 at 01:00 Glucagon (Glucagen) 1 mg Q15M PRN IM DECREASED GLUCOSE; Start 06/24/18 at 01:00 Glucose (Glutose) 15 gm Q15M PRN BUCCAL DECREASED GLUCOSE; Start 06/24/18 at 01:00 Atorvastatin Calcium (Lipitor) 20 mg QHS PO ; Start 06/24/18 at 21:00 Gabapentin (Neurontin) 100 mg QPM PO Last administered on 06/25/18at 20:48; Admin Dose 100 MG; Start 06/24/18 at 21:00 Insulin Glargine (Lantus) 30 units QPM SC Last administered on 06/25/18at 21:01; Admin Dose 30 UNITS; Start 06/24/18 at 21:00 Latanoprost (Xalatan) 1 drop QHS BOTH EYES ; Start 06/24/18 at 21:00 Aspirin (Halfprin) 81 mg DAILY PO Last administered on 06/26/18at 08:00; Admin Dose 81 MG; Start 06/24/18 at 12:00 Albuterol/ Ipratropium (Duoneb) 3 ml Q4HWA RESP THERAPY HHN Last administered on 06/26/18at 12:25; Admin Dose 3 ML; Start 06/24/18 at 17:00 Clonidine (Catapres) 0.1 mg Q6H PRN PO ELEVATED BLOOD PRESSURE Last administered on 06/26/18at 09:02; Admin Dose 0.1 MG; Start 06/24/18 at 16:30 Insulin Aspart (Novolog Insulin Pen) 4 unit WITH MEALS SC Last administered on 06/26/18at 12:07; Admin Dose 4 UNIT; Start 06/25/18 at 18:00 Metoprolol Tartrate (Lopressor) 50 mg BID PO Last administered on 06/26/18at 08:02; Admin Dose 50 MG; Start 06/25/18 at 21:00 Enoxaparin Sodium (Lovenox) 60 mg BID SC Last administered on 06/26/18at 08:21; Admin Dose 60 MG; Start 06/25/18 at 21:00 Diltiazem HCl (Cardizem Iv) 5 mg Q3H PRN IV INCREASED HEART RATE; Start 06/25/18 at 19:00 MARIZA BARRERA MD June 26, 2018 15:21
--- NOTE | 2018-06-26 15:24 | CONS ---
Assessment/Plan Assessment/Plan Hospital Course (Demo Recall) Patient is alert looks comfortable denies pain no fevers overnight family at bedside. WBC 15.6 H&H 9.3 and 28.4 neutrophils 75.3 BUN 14 creatinine 0.92 Microbiology: Cultures on this admission negative Chest x-ray yesterday revealed bibasilar atelectasis mild cardiomegaly with aortic atherosclerosis. Renal ultrasound revealed mild left-sided hydronephrosis Antimicrobials: Zosyn Physical examination: Well-developed elderly [place] woman who is alert in no distress. Head atraumatic normocephalic sclera nonicteric neck is supple chest rise symmetrical breath sounds clear heart S1-S2 abdomen soft bowel sounds present extremities without cyanosis. Assessment: 1. Sepsis present on admission likely secondary to urinary tract infection 2. Left-sided hydronephrosis 3. Possible pneumonia 4. Diabetes 5. Hypertension Plan: Patient remains stable and overall improving, continue on current antibiotics, await for cultures from [facility], plan for CT urogram. Discussed with family at bedside Consultation Date/Type/Reason Admit Date/Time June 23, 2018 at 22:54 Initial Consult Date Type of Consult id Date/Time of Note DATE: 06/26/18 TIME: 15:24 Exam/Review of Systems Exam Vitals Vital Signs Date Temp Pulse Resp B/P (MAP) Pulse Ox O2 O2 Flow FiO2 Time Delivery Rate 06/26/18 72 18 97 21 12:25 06/26/18 98.1 153/68 11:21 (96) 06/25/18 Room Air 07:12 Intake and Output 06/25/18 06/25/18 06/26/18 1515:00 23:00 07:00 IntakeIntake Total 950 ml 100 ml BalanceBalance 950 ml 100 ml Results Result Diagram: 06/26/18 0550 06/26/18 0550 Results 24hrs Laboratory Tests Test 06/25/18 17:27 06/25/18 20:45 06/26/18 01:41 06/26/18 05:31 Bedside Glucose 221 H 236 H 161 137 Test 06/26/18 05:50 06/26/18 07:58 06/26/18 11:53 White Blood Count 15.6 #H Red Blood Count 3.28 L Hemoglobin 9.3 L Hematocrit 28.4 L Mean Corpuscular Volume 86.6 Mean Corpuscular 28.4 L Hemoglobin Mean Corpuscular 32.7 Hemoglobin Concent Red Cell Distribution 12.9 Width Platelet Count 266 Mean Platelet Volume 9.2 Immature Granulocytes % 0.500 H Neutrophils % 75.3 Lymphocytes % 13.2 L Monocytes % 10.0 Eosinophils % 0.6 Basophils % 0.4 Nucleated Red Blood 0.0 Cells % Immature Granulocytes # 0.080 H Neutrophils # 11.7 H Lymphocytes # 2.1 Monocytes # 1.6 H Eosinophils # 0.1 Basophils # 0.1 Nucleated Red Blood 0.0 Cells # Sodium Level 139 Potassium Level 3.9 Chloride Level 105 Carbon Dioxide Level 24 Anion Gap 10 Blood Urea Nitrogen 14 Creatinine 0.92 Est Glomerular Filtrat > 60 Rate mL/min Glucose Level 140 # Calcium Level 8.6 Phosphorus Level 2.7 Magnesium Level 2.2 Triglycerides Level 164 H Cholesterol Level 121 LDL Cholesterol, 59 Calculated HDL Cholesterol 29 L Cholesterol/HDL Ratio 4.1 Bedside Glucose 164 159 Medications Medication Current Medications Pantoprazole (Protonix Tab) 40 mg DAILY@06 PO Last administered on 06/26/18 05:30; Admin Dose 40 MG; Start 06/24/18 at 06:00 Acetaminophen (Tylenol Tab) 650 mg Q6H PRN PO MILD PAIN(1-3)OR ELEVATED TEMP Last administered on 06/25/18 02:48; Admin Dose 650 MG; Start 06/24/18 at 00:00 Ondansetron HCl (Zofran Inj) 4 mg Q6H PRN IV NAUSEA AND/OR VOMITING Last administered on 06/24/18 15:55; Admin Dose 4 MG; Start 06/24/18 at 00:00 Piperacillin Sod/ Tazobactam Sod 100 ml @ 200 mls/hr Q8 IVPB Last administered on 06/26/18 13:24; Admin Dose 200 MLS/HR; Start 06/24/18 at 06:00 Acetaminophen/ Hydrocodone Bitart ([place] (5/325)) 1 tab Q6H PRN PO MODERATE PAIN LEVEL 4-6; Start 06/24/18 at 00:00 Losartan Potassium (Cozaar) 100 mg DAILY PO Last administered on 06/26/18 08:03; Admin Dose 100 MG; Start 06/24/18 at 09:00 Atorvastatin Calcium (Lipitor) 20 mg HS PO Last administered on 06/25/18 20:47; Admin Dose 20 MG; Start 06/24/18 at 21:00 Gabapentin (Neurontin) 300 mg BID PRN PO MUSCLE AND LEG CRAMPS; Start 06/24/18 at 00:00 Latanoprost (Xalatan) 1 drop HS BOTH EYES Last administered on 06/25/18 20:47; Admin Dose 1 DROP; Start 06/24/18 at 21:00 Diagnostic Test (Pha) (Accu-Chek) 1 ea 02 XX Last administered on 06/26/18at 02:50; Admin Dose 1 EA; Start 06/24/18 at 02:00 Insulin Aspart (Novolog Insulin Pen) NOVOLOG *MODERATE* ALGORITHM WITH MEALS BEDTIME SC Last administered on 06/26/18 12:07; Admin Dose 2 UNIT; Start 06/24/18 at 08:00 Miscellaneous Information 1 ea NOTE XX ; Start 06/24/18 at 01:00 Glucose (Glutose) 15 gm Q15M PRN PO DECREASED GLUCOSE; Start 06/24/18 at 01:00 Glucose (Glutose) 22.5 gm Q15M PRN PO DECREASED GLUCOSE; Start 06/24/18 at 01:00 Dextrose (D50w Syringe) 25 ml Q15M PRN IV DECREASED GLUCOSE; Start 06/24/18 at 01:00 Dextrose (D50w Syringe) 50 ml Q15M PRN IV DECREASED GLUCOSE; Start 06/24/18 at 01:00 Glucagon (Glucagen) 1 mg Q15M PRN IM DECREASED GLUCOSE; Start 06/24/18 at 01:00 Glucose (Glutose) 15 gm Q15M PRN BUCCAL DECREASED GLUCOSE; Start 06/24/18 at 01:00 Atorvastatin Calcium (Lipitor) 20 mg QHS PO ; Start 06/24/18 at 21:00 Gabapentin (Neurontin) 100 mg QPM PO Last administered on 06/25/18at 20:48; Admin Dose 100 MG; Start 06/24/18 at 21:00 Insulin Glargine (Lantus) 30 units QPM SC Last administered on 06/25/18 21:01; Admin Dose 30 UNITS; Start 06/24/18 at 21:00 Latanoprost (Xalatan) 1 drop QHS BOTH EYES ; Start 06/24/18 at 21:00 Aspirin (Halfprin) 81 mg DAILY PO Last administered on 06/26/18 08:00; Admin Dose 81 MG; Start 06/24/18 at 12:00 Albuterol/ Ipratropium (Duoneb) 3 ml Q4HWA RESP THERAPY HHN Last administered on 06/26/18 12:25; Admin Dose 3 ML; Start 06/24/18 at 17:00 Clonidine (Catapres) 0.1 mg Q6H PRN PO ELEVATED BLOOD PRESSURE Last administered on 06/26/18 09:02; Admin Dose 0.1 MG; Start 06/24/18 at 16:30 Insulin Aspart (Novolog Insulin Pen) 4 unit WITH MEALS SC Last administered on 06/26/18 12:07; Admin Dose 4 UNIT; Start 06/25/18 at 18:00 Metoprolol Tartrate (Lopressor) 50 mg BID PO Last administered on 06/26/18 08:02; Admin Dose 50 MG; Start 06/25/18 at 21:00 Enoxaparin Sodium (Lovenox) 60 mg BID SC Last administered on 06/26/18 08:21; Admin Dose 60 MG; Start 06/25/18 at 21:00 Diltiazem HCl (Cardizem Iv) 5 mg Q3H PRN IV INCREASED HEART RATE; Start 06/25/18 at 19:00 HERBERTH ZAMBRANO NP June 26, 2018 15:24
--- NOTE | 2018-06-26 18:42 | CONS ---
Assessment/Plan Assessment/Plan Hospital Course (Demo Recall) IMPRESSION: 1. Abnormal electrocardiogram, assess for acute coronary syndrome.-NL EF by echo this admit 2. Hypertension, mildly elevated. 3. Shortness of breath, assess for congestive heart failure. 4. Questionable urinary tract infection. 5. Fevers. 6. Generalized weakness. 7. Leukocytosis. 8. Diabetes mellitus. 9. PAF-in SR currently Recc: -Tele -complte dada -increase BB further to improve BP and continue losartan -contiue lovenox with transition to eliquis at d/c -Contineu baby asa for now but probably ok to d/c to decrease bleeding risk as will be on systemic anticoagulation -continue losartan -Continue statin Consultation Date/Type/Reason Admit Date/Time June 23, 2018 at 22:54 Initial Consult Date 06/24/18 Type of Consult Cardiology Reason for Consultation abnl ecg/HTN Requesting Provider: MARIZA BARRERA MD Date/Time of Note DATE: 06/26/18 TIME: 18:34 Exam/Review of Systems Vital Signs Vitals Vital Signs Date Temp Pulse Resp B/P (MAP) Pulse Ox O2 O2 Flow FiO2 Time Delivery Rate 06/26/18 88 18 98 21 16:41 06/26/18 98.1 140/70 15:50 (93) 06/25/18 Room Air 07:12 Intake and Output 06/25/18 06/25/18 06/26/18 1515:00 23:00 07:00 IntakeIntake Total 950 ml 100 ml BalanceBalance 950 ml 100 ml Exam Exam Review of Systems: CONSTITUTIONAL: No fevers, chills. PULMONARY: No sob CARDIOVASCULAR: No chest pain/palpitations GASTROINTESTINAL: No nausea/vomiting. GENITOURINARY: No hematuria/dysuria. MUSCULOSKELETAL: No myagias/arthalgias. PSYCHIATRIC: The patient denies depression. NEUROLOGIC: No weakness Constitutional: alert Psych: no complaints Head: normocephalic ENMT: mucosa pink and moist Neck: supple, jvd Respiratory: diminished breath sounds Cardiovascular: regular rate and rhythm Gastrointestinal: soft, non-tender Musculoskeletal: muscle tone (normal) Extremities: edema (none) Neurological: other (No focal deficits) Labs Result Diagram: 06/26/18 0550 06/26/18 0550 Results 24hrs Laboratory Tests Test 06/25/18 20:45 06/26/18 01:41 06/26/18 05:31 06/26/18 05:50 Bedside Glucose 236 H 161 137 White Blood Count 15.6 #H Red Blood Count 3.28 L Hemoglobin 9.3 L Hematocrit 28.4 L Mean Corpuscular Volume 86.6 Mean Corpuscular 28.4 L Hemoglobin Mean Corpuscular 32.7 Hemoglobin Concent Red Cell Distribution 12.9 Width Platelet Count 266 Mean Platelet Volume 9.2 Immature Granulocytes % 0.500 H Neutrophils % 75.3 Lymphocytes % 13.2 L Monocytes % 10.0 Eosinophils % 0.6 Basophils % 0.4 Nucleated Red Blood 0.0 Cells % Immature Granulocytes # 0.080 H Neutrophils # 11.7 H Lymphocytes # 2.1 Monocytes # 1.6 H Eosinophils # 0.1 Basophils # 0.1 Nucleated Red Blood 0.0 Cells # Sodium Level 139 Potassium Level 3.9 Chloride Level 105 Carbon Dioxide Level 24 Anion Gap 10 Blood Urea Nitrogen 14 Creatinine 0.92 Est Glomerular Filtrat > 60 Rate mL/min Glucose Level 140 # Calcium Level 8.6 Phosphorus Level 2.7 Magnesium Level 2.2 Triglycerides Level 164 H Cholesterol Level 121 LDL Cholesterol, 59 Calculated HDL Cholesterol 29 L Cholesterol/HDL Ratio 4.1 Test 06/26/18 07:58 06/26/18 11:53 06/26/18 17:13 Bedside Glucose 164 159 138 Medications Medications Current Medications Pantoprazole (Protonix Tab) 40 mg DAILY@06 PO Last administered on 06/26/18 05:30; Admin Dose 40 MG; Start 06/24/18 at 06:00 Acetaminophen (Tylenol Tab) 650 mg Q6H PRN PO MILD PAIN(1-3)OR ELEVATED TEMP Last administered on 06/25/18 02:48; Admin Dose 650 MG; Start 06/24/18 at 00:00 Ondansetron HCl (Zofran Inj) 4 mg Q6H PRN IV NAUSEA AND/OR VOMITING Last administered on 06/24/18 15:55; Admin Dose 4 MG; Start 06/24/18 at 00:00 Piperacillin Sod/ Tazobactam Sod 100 ml @ 200 mls/hr Q8 IVPB Last administered on 06/26/18 13:24; Admin Dose 200 MLS/HR; Start 06/24/18 at 06:00 Acetaminophen/ Hydrocodone Bitart ([place] (5/325)) 1 tab Q6H PRN PO MODERATE PAIN LEVEL 4-6; Start 06/24/18 at 00:00 Losartan Potassium (Cozaar) 100 mg DAILY PO Last administered on 06/26/18 08:03; Admin Dose 100 MG; Start 06/24/18 at 09:00 Atorvastatin Calcium (Lipitor) 20 mg HS PO Last administered on 06/25/18 20:47; Admin Dose 20 MG; Start 06/24/18 at 21:00 Gabapentin (Neurontin) 300 mg BID PRN PO MUSCLE AND LEG CRAMPS; Start 06/24/18 at 00:00 Latanoprost (Xalatan) 1 drop HS BOTH EYES Last administered on 06/25/18 20:47; Admin Dose 1 DROP; Start 06/24/18 at 21:00 Diagnostic Test (Pha) (Accu-Chek) 1 ea 02 XX Last administered on 06/26/18 02:50; Admin Dose 1 EA; Start 06/24/18 at 02:00 Insulin Aspart (Novolog Insulin Pen) NOVOLOG *MODERATE* ALGORITHM WITH MEALS BEDTIME SC Last administered on 06/26/18 12:07; Admin Dose 2 UNIT; Start 06/24/18 at 08:00 Miscellaneous Information 1 ea NOTE XX ; Start 06/24/18 at 01:00 Glucose (Glutose) 15 gm Q15M PRN PO DECREASED GLUCOSE; Start 06/24/18 at 01:00 Glucose (Glutose) 22.5 gm Q15M PRN PO DECREASED GLUCOSE; Start 06/24/18 at 01:00 Dextrose (D50w Syringe) 25 ml Q15M PRN IV DECREASED GLUCOSE; Start 06/24/18 at 01:00 Dextrose (D50w Syringe) 50 ml Q15M PRN IV DECREASED GLUCOSE; Start 06/24/18 at 01:00 Glucagon (Glucagen) 1 mg Q15M PRN IM DECREASED GLUCOSE; Start 06/24/18 at 01:00 Glucose (Glutose) 15 gm Q15M PRN BUCCAL DECREASED GLUCOSE; Start 06/24/18 at 01:00 Atorvastatin Calcium (Lipitor) 20 mg QHS PO ; Start 06/24/18 at 21:00 Gabapentin (Neurontin) 100 mg QPM PO Last administered on 5/8/19at 20:48; Admin Dose 100 MG; Start 06/24/18 at 21:00 Insulin Glargine (Lantus) 30 units QPM SC Last administered on 06/25/18at 21:01; Admin Dose 30 UNITS; Start 06/24/18 at 21:00 Latanoprost (Xalatan) 1 drop QHS BOTH EYES ; Start 06/24/18 at 21:00 Aspirin (Halfprin) 81 mg DAILY PO Last administered on 06/26/18 08:00; Admin Dose 81 MG; Start 06/24/18 at 12:00 Albuterol/ Ipratropium (Duoneb) 3 ml Q4HWA RESP THERAPY HHN Last administered on 06/26/18 16:39; Admin Dose 3 ML; Start 06/24/18 at 17:00 Clonidine (Catapres) 0.1 mg Q6H PRN PO ELEVATED BLOOD PRESSURE Last administered on 06/26/18 09:02; Admin Dose 0.1 MG; Start 06/24/18 at 16:30 Insulin Aspart (Novolog Insulin Pen) 4 unit WITH MEALS SC Last administered on 06/26/18 17:18; Admin Dose 4 UNIT; Start 06/25/18 at 18:00 Metoprolol Tartrate (Lopressor) 50 mg BID PO Last administered on 06/26/18 08:02; Admin Dose 50 MG; Start 06/25/18 at 21:00 Enoxaparin Sodium (Lovenox) 60 mg BID SC Last administered on 06/26/18 08:21; Admin Dose 60 MG; Start 06/25/18 at 21:00 Diltiazem HCl (Cardizem Iv) 5 mg Q3H PRN IV INCREASED HEART RATE; Start 06/25/18 at 19:00 KAYCEE MILLER June 26, 2018 18:42
--- NOTE | 2018-06-26 19:11 | RADRPT ---
Vent Rate: 117 bpm RR Interval: 508 msec OH Interval: [id number] msec QRS Duration: 86 msec QT Interval: 321 msec QTC Interval: 450 msec P-R-T Pierce: [id number] - 79 - 69 degrees Atrial fibrillation...V-rate 82-139, irreg A-activity Electronically Signed By: Missael Núñez
[2018-06-26] MEDS: GABAPENTIN 100 MG CAP PO SCH (21:20)
[2018-06-26] MEDS: ATORVASTATIN 20 MG TAB PO SCH (21:20)
[2018-06-26] MEDS: LATANOPROST 0.005% 2.5 ML OPH BOTH EYES SCH (21:21)
[2018-06-26] MEDS: METOPROLOL 25 MG TAB PO SCH (21:21)
[2018-06-26] MEDS: INSULIN GLARGINE [LANTus] (100 UNITS/ML) SYG SC SCH (21:23)
[2018-06-27] VITALS (12 sets, daily range): BP systolic 150–185; BP diastolic 67–82; PULSE 75–103; RESP 16–20
[2018-06-27] MEDS: ACCU-CHEK XX SCH (02:00)
[2018-06-27] MEDS: PIPER-TAZO 3.375 GM IV (PMX) 100 ML IVPB SCH ×2 (06:02→13:37)
[2018-06-27] MEDS: PANTOPRAZOLE (EC) 40 MG TAB PO SCH (06:02)
[2018-06-27] MEDS: INSULIN ASPART [NOVOLOG] 3 ML PEN SC SCH ×7 (07:46→21:45)
[2018-06-27] MEDS: LOSARTAN 50 MG TAB PO SCH (08:19)
[2018-06-27] MEDS: ASPIRIN (EC) 81 MG TAB PO SCH (08:20)
[2018-06-27] MEDS: METOPROLOL 25 MG TAB PO SCH ×2 (08:20→21:19)
[2018-06-27] MEDS: ENOXAPARIN 60 MG/0.6 ML SYG SC SCH (08:26)
[2018-06-27] MEDS: ALBUTEROL/IPRATROPIUM (NEB) 3 ML AMP HHN SCH ×4 (09:34→20:06)
--- NOTE | 2018-06-27 09:39 | CONS ---
Consult Date/Type/Reason Admit Date/Time June 23, 2018 at 22:54 Initial Consult Date Requesting Provider: MARIZA BARRERA MD Date/Time of Note DATE: 06/27/18 TIME: 09:37 Subjective NO acute events - pt stable - in sinus now - no signs of bleeding. ROS: No fever, no chills, no nausea, no vomiting, no diarrhea/constipation No recent weight changes No chest pain, no PND, no orthopnea - improved SOB No dizziness, blurred vision No thirst, no heat or cold intolerance Objective Vitals Vital Signs Date Temp Pulse Resp B/P (MAP) Pulse Ox O2 O2 Flow FiO2 Time Delivery Rate 06/27/18 99 08:45 06/27/18 98.0 19 185/79 96 07:29 (114) 06/26/18 21 20:19 06/25/18 Room Air 07:12 Intake and Output 06/26/18 06/26/18 06/27/18 1515:00 23:00 07:00 IntakeIntake Total 1100 ml BalanceBalance 1100 ml Exam General: WN/WD/NAD, AOx 3 HEENT: Unicetric/atraumatic/EOMI (follows commands) NECK: JVD elevated, no thyromegaly Lymph: no lymphadenopathy HEART: regular with no S3, II/ systolic murmur at apex LUNGS: Coarse sounds ABD: soft, NT, ND, +BS : Intact Neuro: non focal SKIN: chronic changes EXT: trace edema Results/Medications Result Diagram: 06/27/18 0543 06/27/18 0543 Results 24 hrs Laboratory Tests Test 06/26/18 11:53 06/26/18 17:13 06/26/18 21:17 06/27/18 01:04 Bedside Glucose 159 138 216 Creatine Kinase 47 Creatine Kinase 1.1 Index Creatinine Kinase MB 0.52 (Mass) Troponin I < 0.012 Test 06/27/18 02:00 06/27/18 05:43 06/27/18 07:39 Bedside Glucose 150 107 White Blood Count 9.5 # Red Blood Count 3.04 L Hemoglobin 8.8 L Hematocrit 26.1 L Mean Corpuscular 85.9 Volume Mean Corpuscular 28.9 L Hemoglobin Mean Corpuscular 33.7 Hemoglobin Concent Red Cell 12.9 Distribution Width Platelet Count 280 Mean Platelet Volume 9.3 Immature 0.700 H Granulocytes % Neutrophils % 63.2 Lymphocytes % 21.7 Monocytes % 12.6 H Eosinophils % 1.4 Basophils % 0.4 Nucleated Red Blood 0.0 Cells % Immature 0.070 H Granulocytes # Neutrophils # 6.0 Lymphocytes # 2.1 Monocytes # 1.2 H Eosinophils # 0.1 Basophils # 0.0 Nucleated Red Blood 0.0 Cells # Sodium Level 140 Potassium Level 3.8 Chloride Level 109 Carbon Dioxide Level 23 Anion Gap 8 Blood Urea Nitrogen 10 Creatinine 0.76 Est Glomerular > 60 Filtrat Rate mL/min Glucose Level 129 Calcium Level 8.6 Phosphorus Level 3.7 Magnesium Level 2.1 Creatine Kinase 43 Creatine Kinase 0.8 Index Creatinine Kinase MB 0.33 (Mass) Troponin I < 0.012 Home Meds Active Scripts Ibuprofen* (Motrin*) 400 Mg Tab, 400 MG PO Q6H PRN for PAIN AND OR ELEVATED TEMP, #30 TAB Prov:LYNETTE GARRETT MD 07/10/17 Cephalexin* (Keflex*) 500 Mg Capsule, 500 MG PO TID for 14 Days, CAP Prov:LYNETTE GARRETT MD 07/10/17 Reported Medications Latanoprost (Latanoprost) 2.5 Ml Drops, 1 DROP BOTH EYES QHS, #1 BOTTLE 06/24/18 Furosemide* (Furosemide*) 20 Mg Tablet, 20 MG PO DAILY, #60 TAB 06/24/18 Gabapentin* (Gabapentin*) 300 Mg Capsule, 300 MG PO BID PRN for muscle and leg cramps, #60 CAP 06/24/18 Atorvastatin Calcium* (Atorvastatin Calcium*) 20 Mg Tablet, 20 MG PO QHS, #30 TAB 06/24/18 Aspirin* (Aspirin* EC) 81 Mg Tablet.dr, 81 MG PO DAILY, TAB 06/24/18 Metoprolol Tartrate* (Lopressor*) 50 Mg Tab, 50 MG PO DAILY, #60 TAB 06/24/18 Losartan Potassium* (Losartan Potassium*) 100 Mg Tablet, 100 MG PO DAILY, TAB 06/24/18 Sitagliptin* (Januvia*) 100 Mg Tablet, 100 MG PO DAILY, #30 TAB 06/24/18 Metformin Hcl* (Metformin Hcl*) 500 Mg Tablet, 500 MG PO WITH BREAKFAST DINNE, #60 TAB 06/24/18 Aspirin* (Aspirin* Chew) Unknown Strength Tab.chew, PO DAILY, TAB.CHEW 07/10/17 Losartan Potassium* (Losartan Potassium*) Unknown Strength Tablet, PO DAILY, TAB 07/10/17 Metformin Hcl* (Metformin Hcl* ER) Unknown Strength Tab.sr.24h, PO DAILY, #30 TAB 07/10/17 Gabapentin* (Gabapentin*) 100 Mg Capsule, 100 MG PO QPM, #90 CAP 04/24/16 Insulin Glargine* (Lantus*) 100 Unit/Ml Soln, 30 UNIT SC QPM, #1 VIAL 04/24/16 Amoxicillin/Potassium Clav (Amox-Clav 875-125 mg Tablet) 875-125 mg Tab, 1 TAB PO BID, #20 TAB 04/24/16 Metoprolol Tartrate* (Lopressor*) 50 Mg Tab, 50 MG PO BID, #60 TAB 04/24/16 Sitagliptin* (Januvia*) 100 Mg Tablet, 100 MG PO DAILY, #30 TAB 04/24/16 Medications Current Medications Pantoprazole (Protonix Tab) 40 mg DAILY@06 PO Last administered on 06/27/18at 06:02; Admin Dose 40 MG; Start 06/24/18 at 06:00 Acetaminophen (Tylenol Tab) 650 mg Q6H PRN PO MILD PAIN(1-3)OR ELEVATED TEMP Last administered on 06/25/18at 02:48; Admin Dose 650 MG; Start 06/24/18 at 00:00 Ondansetron HCl (Zofran Inj) 4 mg Q6H PRN IV NAUSEA AND/OR VOMITING Last administered on 06/24/18at 15:55; Admin Dose 4 MG; Start 06/24/18 at 00:00 Piperacillin Sod/ Tazobactam Sod 100 ml @ 200 mls/hr Q8 IVPB Last administered on 06/27/18at 06:02; Admin Dose 200 MLS/HR; Start 06/24/18 at 06:00 Acetaminophen/ Hydrocodone Bitart ([place] (5/325)) 1 tab Q6H PRN PO MODERATE PAIN LEVEL 4-6; Start 06/24/18 at 00:00 Losartan Potassium (Cozaar) 100 mg DAILY PO Last administered on 06/27/18at 08:19; Admin Dose 100 MG; Start 06/24/18 at 09:00 Gabapentin (Neurontin) 300 mg BID PRN PO MUSCLE AND LEG CRAMPS; Start 06/24/18 at 00:00 Diagnostic Test (Pha) (Accu-Chek) 1 ea 02 XX Last administered on 06/26/18at 02:50; Admin Dose 1 EA; Start 06/24/18 at 02:00 Insulin Aspart (Novolog Insulin Pen) NOVOLOG *MODERATE* ALGORITHM WITH MEALS BEDTIME SC Last administered on 06/26/18 21:37; Admin Dose 1 UNIT; Start 06/24/18 at 08:00 Miscellaneous Information 1 ea NOTE XX ; Start 06/24/18 at 01:00 Glucose (Glutose) 15 gm Q15M PRN PO DECREASED GLUCOSE; Start 06/24/18 at 01:00 Glucose (Glutose) 22.5 gm Q15M PRN PO DECREASED GLUCOSE; Start 06/24/18 at 01:00 Dextrose (D50w Syringe) 25 ml Q15M PRN IV DECREASED GLUCOSE; Start 06/24/18 at 01:00 Dextrose (D50w Syringe) 50 ml Q15M PRN IV DECREASED GLUCOSE; Start 06/24/18 at 01:00 Glucagon (Glucagen) 1 mg Q15M PRN IM DECREASED GLUCOSE; Start 06/24/18 at 01:00 Glucose (Glutose) 15 gm Q15M PRN BUCCAL DECREASED GLUCOSE; Start 06/24/18 at 01:00 Atorvastatin Calcium (Lipitor) 20 mg QHS PO Last administered on 06/26/18 21:20; Admin Dose 20 MG; Start 06/24/18 at 21:00 Gabapentin (Neurontin) 100 mg QPM PO Last administered on 06/26/18 21:20; Admin Dose 100 MG; Start 06/24/18 at 21:00 Insulin Glargine (Lantus) 30 units QPM SC Last administered on 06/26/18 21:23; Admin Dose 30 UNITS; Start 06/24/18 at 21:00 Latanoprost (Xalatan) 1 drop QHS BOTH EYES Last administered on 06/26/18 21:21; Admin Dose 1 DROP; Start 06/24/18 at 21:00 Aspirin (Halfprin) 81 mg DAILY PO Last administered on 06/27/18 08:20; Admin Dose 81 MG; Start 06/24/18 at 12:00 Albuterol/ Ipratropium (Duoneb) 3 ml Q4HWA RESP THERAPY HHN Last administered on 06/27/18 09:34; Admin Dose 3 ML; Start 06/24/18 at 17:00 Clonidine (Catapres) 0.1 mg Q6H PRN PO ELEVATED BLOOD PRESSURE Last administered on 06/26/18 09:02; Admin Dose 0.1 MG; Start 06/24/18 at 16:30 Insulin Aspart (Novolog Insulin Pen) 4 unit WITH MEALS SC Last administered on 06/27/18 08:07; Admin Dose 4 UNIT; Start 06/25/18 at 18:00 Enoxaparin Sodium (Lovenox) 60 mg BID SC Last administered on 06/27/18 08:26; Admin Dose 60 MG; Start 06/25/18 at 21:00 Diltiazem HCl (Cardizem Iv) 5 mg Q3H PRN IV INCREASED HEART RATE; Start 06/25/18 at 19:00 Metoprolol Tartrate (Lopressor) 75 mg BID PO Last administered on 06/27/18 08:20; Admin Dose 75 MG; Start 06/26/18 at 21:00 Assessment/Plan Hospital Course (Demo Recall) 1. Abnormal electrocardiogram, assess for acute coronary syndrome.-NL EF by echo this admit - r/o SC - doubt ischemia. 2. Hypertension, mildly elevated - still high, con't to adjust rX. 3. Shortness of breath, assess for congestive heart failure - better now. 4. Questionable urinary tract infection - primary follows, WBP 9.5 5. Fevers. 6. Generalized weakness. 7. Leukocytosis. 8. Diabetes mellitus- on meds. 9. PAF-in SR currently - con't anti-coagualtion SHRADDHA RAMIREZ MD June 27, 2018 09:39
--- NOTE | 2018-06-27 13:40 | CONS ---
Assessment/Plan Assessment/Plan Hospital Course (Demo Recall) Patient is alert feels much better ambulating in the room no fevers, no dysuria Microbiology: Blood cultures remain negative, urine culture from another facility grew E. coli ESBL, susceptible to Zosyn and Invanz Chest x-ray yesterday revealed bibasilar atelectasis mild cardiomegaly with aor tic atherosclerosis. Renal ultrasound revealed mild left-sided hydronephrosis Antimicrobials: Zosyn Physical examination: Well-developed elderly Armenian woman who is alert in no distress. Head atraumatic normocephalic sclera nonicteric neck is supple chest rise symmetrical breath sounds clear heart S1-S2 abdomen soft bowel sounds present extremities without cyanosis. Assessment: 1. Sepsis present on admission secondary to urinary tract infection 2. Left-sided hydronephrosis 3. Possible pneumonia 4. Diabetes 5. Hypertension Plan: Doing better, consider discharge on IV Invanz 1 g daily for 7 more days as there is no option for p.o. antibiotics per sensitivity. Patient may go with the midline. Discussed with family at bedside Consultation Date/Type/Reason Admit Date/Time June 23, 2018 at 22:54 Initial Consult Date Type of Consult id Requesting Provider: MARIZA BARRERA MD Date/Time of Note DATE: 06/27/18 TIME: 13:39 Exam/Review of Systems Exam Vitals Vital Signs Date Temp Pulse Resp B/P (MAP) Pulse Ox O2 O2 Flow FiO2 Time Delivery Rate 06/27/18 80 17 97 21 13:18 06/27/18 98.2 168/77 11:09 (107) 06/25/18 Room Air 07:12 Intake and Output 06/26/18 06/26/18 06/27/18 1515:00 23:00 07:00 IntakeIntake Total 1100 ml BalanceBalance 1100 ml Results Result Diagram: 06/27/18 0543 06/27/18 0543 Results 24hrs Laboratory Tests Test 06/26/18 17:13 06/26/18 21:17 06/27/18 01:04 06/27/18 02:00 Bedside Glucose 138 216 150 Creatine Kinase 47 Creatine Kinase 1.1 Index Creatinine Kinase MB 0.52 (Mass) Troponin I < 0.012 Test 06/27/18 05:43 06/27/18 07:39 06/27/18 11:49 06/27/18 11:59 White Blood Count 9.5 # Red Blood Count 3.04 L Hemoglobin 8.8 L Hematocrit 26.1 L Mean Corpuscular 85.9 Volume Mean Corpuscular 28.9 L Hemoglobin Mean Corpuscular 33.7 Hemoglobin Concent Red Cell 12.9 Distribution Width Platelet Count 280 Mean Platelet Volume 9.3 Immature 0.700 H Granulocytes % Neutrophils % 63.2 Lymphocytes % 21.7 Monocytes % 12.6 H Eosinophils % 1.4 Basophils % 0.4 Nucleated Red Blood 0.0 Cells % Immature 0.070 H Granulocytes # Neutrophils # 6.0 Lymphocytes # 2.1 Monocytes # 1.2 H Eosinophils # 0.1 Basophils # 0.0 Nucleated Red Blood 0.0 Cells # Sodium Level 140 Potassium Level 3.8 Chloride Level 109 Carbon Dioxide Level 23 Anion Gap 8 Blood Urea Nitrogen 10 Creatinine 0.76 Est Glomerular > 60 Filtrat Rate mL/min Glucose Level 129 Calcium Level 8.6 Phosphorus Level 3.7 Magnesium Level 2.1 Creatine Kinase 43 52 Creatine Kinase 0.8 0.8 Index Creatinine Kinase MB 0.33 0.39 (Mass) Troponin I < 0.012 < 0.012 Bedside Glucose 107 168 Medications Medication Current Medications Pantoprazole (Protonix Tab) 40 mg DAILY@06 PO Last administered on 06/27/18at 06:02; Admin Dose 40 MG; Start 06/24/18 at 06:00 Acetaminophen (Tylenol Tab) 650 mg Q6H PRN PO MILD PAIN(1-3)OR ELEVATED TEMP Last administered on 06/25/18at 02:48; Admin Dose 650 MG; Start 06/24/18 at 00:00 Ondansetron HCl (Zofran Inj) 4 mg Q6H PRN IV NAUSEA AND/OR VOMITING Last administered on 06/24/18at 15:55; Admin Dose 4 MG; Start 06/24/18 at 00:00 Piperacillin Sod/ Tazobactam Sod 100 ml @ 200 mls/hr Q8 IVPB Last administered on 06/27/18at 06:02; Admin Dose 200 MLS/HR; Start 06/24/18 at 06:00 Acetaminophen/ Hydrocodone Bitart ([place] (5/325)) 1 tab Q6H PRN PO MODERATE PAIN LEVEL 4-6; Start 06/24/18 at 00:00 Losartan Potassium (Cozaar) 100 mg DAILY PO Last administered on 06/27/18at 08:19; Admin Dose 100 MG; Start 06/24/18 at 09:00 Gabapentin (Neurontin) 300 mg BID PRN PO MUSCLE AND LEG CRAMPS; Start 06/24/18 at 00:00 Diagnostic Test (Pha) (Accu-Chek) 1 ea 02 XX Last administered on 06/26/18at 02:50; Admin Dose 1 EA; Start 06/24/18 at 02:00 Insulin Aspart (Novolog Insulin Pen) NOVOLOG *MODERATE* ALGORITHM WITH MEALS BEDTIME SC Last administered on 06/27/18at 12:05; Admin Dose 2 UNIT; Start 06/24/18 at 08:00 Miscellaneous Information 1 ea NOTE XX ; Start 06/24/18 at 01:00 Glucose (Glutose) 15 gm Q15M PRN PO DECREASED GLUCOSE; Start 06/24/18 at 01:00 Glucose (Glutose) 22.5 gm Q15M PRN PO DECREASED GLUCOSE; Start 06/24/18 at 01:00 Dextrose (D50w Syringe) 25 ml Q15M PRN IV DECREASED GLUCOSE; Start 06/24/18 at 01:00 Dextrose (D50w Syringe) 50 ml Q15M PRN IV DECREASED GLUCOSE; Start 06/24/18 at 01:00 Glucagon (Glucagen) 1 mg Q15M PRN IM DECREASED GLUCOSE; Start 06/24/18 at 01:00 Glucose (Glutose) 15 gm Q15M PRN BUCCAL DECREASED GLUCOSE; Start 06/24/18 at 01:00 Atorvastatin Calcium (Lipitor) 20 mg QHS PO Last administered on 06/26/18at 21:20; Admin Dose 20 MG; Start 06/24/18 at 21:00 Gabapentin (Neurontin) 100 mg QPM PO Last administered on 06/26/18 21:20; Admin Dose 100 MG; Start 06/24/18 at 21:00 Insulin Glargine (Lantus) 30 units QPM SC Last administered on 06/26/18 21:23; Admin Dose 30 UNITS; Start 06/24/18 at 21:00 Latanoprost (Xalatan) 1 drop QHS BOTH EYES Last administered on 06/26/18at 21:21; Admin Dose 1 DROP; Start 06/24/18 at 21:00 Aspirin (Halfprin) 81 mg DAILY PO Last administered on 06/27/18 08:20; Admin Dose 81 MG; Start 06/24/18 at 12:00 Albuterol/ Ipratropium (Duoneb) 3 ml Q4HWA RESP THERAPY HHN Last administered on 06/27/18 13:17; Admin Dose 3 ML; Start 06/24/18 at 17:00 Clonidine (Catapres) 0.1 mg Q6H PRN PO ELEVATED BLOOD PRESSURE Last administered on 06/26/18 09:02; Admin Dose 0.1 MG; Start 06/24/18 at 16:30 Insulin Aspart (Novolog Insulin Pen) 4 unit WITH MEALS SC Last administered on 06/27/18 12:05; Admin Dose 4 UNIT; Start 06/25/18 at 18:00 Enoxaparin Sodium (Lovenox) 60 mg BID SC Last administered on 06/27/18 08:26; Admin Dose 60 MG; Start 06/25/18 at 21:00 Diltiazem HCl (Cardizem Iv) 5 mg Q3H PRN IV INCREASED HEART RATE; Start 06/25/18 at 19:00 Metoprolol Tartrate (Lopressor) 75 mg BID PO Last administered on 06/27/18 08:20; Admin Dose 75 MG; Start 06/26/18 at 21:00 HERBERTH ZAMBRANO NP June 27, 2018 13:40
--- NOTE | 2018-06-27 13:56 | CONS ---
DATE OF ADMISSION: 06/23/2018 DATE OF CONSULTATION: The patient is doing very well and is comfortable in bed. She is not having any abdominal or back pa in. VITAL SIGNS: Blood pressure 168/77, heart rate 83, temperature 98.2. ABDOMEN: Soft, nondistended, nontender. No palpable mass effect, no CVA tenderness, no masses. Uri ne culture at 48 hours negative. IMPRESSION: Left hydronephrosis. PLAN: Patient awaiting CT scan of abdomen and pelvis without contrast. Further intervention evaluat ion pending clinical course and results of above. Dictated By: ISA WRIGHT MD EGR/NTS Conf#: [id number] DID#: [id number] CC: CHRISTAL REEDER MD;*EndCC*
--- NOTE | 2018-06-27 15:11 | PN ---
Date/Time of Note Date/Time of Note DATE: 06/27/18 TIME: 15:05 Assessment/Plan VTE Prophylaxis Risk score (from [facility])>0 risk: 4 SCD applied (from [facility]): Yes Pharmacological prophylaxis: other (pradaxa) Lines/Catheters IV Catheter Type (from [facility]): [place] Assessment/Plan Hospital Course 1. Sepsis, likely secondary to urinary tract infection.no cx +positive so far 2. Cough, now with sob , crackles on exam ? hx TB in past 3. Urinary tract infection. 4. History of diabetes. 5. Hypertension. 6. Fever secondary to #1. 7. Hyperlipidemia. 8. History of diabetic neuropathy. 9. History of hyponatremia. 10 Paroxysmal A. fib 11. Anemia Assessment/Plan - cw iv Ertapenem -medsurg -start Eliquiz -better hypertensive control -hypoglycemic control - CT a+p for hydronephrosis pending -DVT proph.Lovenox, dc -GI proph. Protonix - fu ID/ Urology/cards recs - cw mealtime insulin/lantus -d/c planning t Result Diagram: 06/27/1843 06/27/1843 Results 24hrs Laboratory Tests Test 06/26/18 17:13 06/26/18 21:17 06/27/18 01:04 06/27/18 02:00 Bedside Glucose 138 216 150 Creatine Kinase 47 Creatine Kinase 1.1 Index Creatinine Kinase MB 0.52 (Mass) Troponin I < 0.012 Test 06/27/18 05:43 06/27/18 07:39 06/27/18 11:49 06/27/18 11:59 White Blood Count 9.5 # Red Blood Count 3.04 L Hemoglobin 8.8 L Hematocrit 26.1 L Mean Corpuscular 85.9 Volume Mean Corpuscular 28.9 L Hemoglobin Mean Corpuscular 33.7 Hemoglobin Concent Red Cell 12.9 Distribution Width Platelet Count 280 Mean Platelet Volume 9.3 Immature 0.700 H Granulocytes % Neutrophils % 63.2 Lymphocytes % 21.7 Monocytes % 12.6 H Eosinophils % 1.4 Basophils % 0.4 Nucleated Red Blood 0.0 Cells % Immature 0.070 H Granulocytes # Neutrophils # 6.0 Lymphocytes # 2.1 Monocytes # 1.2 H Eosinophils # 0.1 Basophils # 0.0 Nucleated Red Blood 0.0 Cells # Sodium Level 140 Potassium Level 3.8 Chloride Level 109 Carbon Dioxide Level 23 Anion Gap 8 Blood Urea Nitrogen 10 Creatinine 0.76 Est Glomerular > 60 Filtrat Rate mL/min Glucose Level 129 Calcium Level 8.6 Phosphorus Level 3.7 Magnesium Level 2.1 Creatine Kinase 43 52 Creatine Kinase 0.8 0.8 Index Creatinine Kinase MB 0.33 0.39 (Mass) Troponin I < 0.012 < 0.012 Bedside Glucose 107 168 Subjective 24 Hr Interval Summary Constitutional: no complaints, improved Exam/Review of Systems Exam Vitals Vital Signs Date Temp Pulse Resp B/P (MAP) Pulse Ox O2 O2 Flow FiO2 Time Delivery Rate 06/27/18 80 17 97 21 13:18 06/27/18 98.2 168/77 11:09 (107) 06/25/18 Room Air 07:12 Intake and Output 06/26/18 06/26/18 06/27/18 1414:59 22:59 06:59 IntakeIntake Total 1100 ml BalanceBalance 1100 ml Constitutional: alert, oriented Psych: no complaints ENMT: nl external ears & nose Respiratory: clear to auscultation Cardiovascular: regular rate and rhythm Gastrointestinal: soft Musculoskeletal: nl extremities to inspection Results Results 24hrs Laboratory Tests Test 06/26/18 17:13 06/26/18 21:17 06/27/18 01:04 06/27/18 02:00 Bedside Glucose 138 216 150 Creatine Kinase 47 Creatine Kinase 1.1 Index Creatinine Kinase MB 0.52 (Mass) Troponin I < 0.012 Test 06/27/18 05:43 06/27/18 07:39 06/27/18 11:49 06/27/18 11:59 White Blood Count 9.5 # Red Blood Count 3.04 L Hemoglobin 8.8 L Hematocrit 26.1 L Mean Corpuscular 85.9 Volume Mean Corpuscular 28.9 L Hemoglobin Mean Corpuscular 33.7 Hemoglobin Concent Red Cell 12.9 Distribution Width Platelet Count 280 Mean Platelet Volume 9.3 Immature 0.700 H Granulocytes % Neutrophils % 63.2 Lymphocytes % 21.7 Monocytes % 12.6 H Eosinophils % 1.4 Basophils % 0.4 Nucleated Red Blood 0.0 Cells % Immature 0.070 H Granulocytes # Neutrophils # 6.0 Lymphocytes # 2.1 Monocytes # 1.2 H Eosinophils # 0.1 Basophils # 0.0 Nucleated Red Blood 0.0 Cells # Sodium Level 140 Potassium Level 3.8 Chloride Level 109 Carbon Dioxide Level 23 Anion Gap 8 Blood Urea Nitrogen 10 Creatinine 0.76 Est Glomerular > 60 Filtrat Rate mL/min Glucose Level 129 Calcium Level 8.6 Phosphorus Level 3.7 Magnesium Level 2.1 Creatine Kinase 43 52 Creatine Kinase 0.8 0.8 Index Creatinine Kinase MB 0.33 0.39 (Mass) Troponin I < 0.012 < 0.012 Bedside Glucose 107 168 Medications Medication Current Medications Pantoprazole (Protonix Tab) 40 mg DAILY@06 PO Last administered on 06/27/18at 06:02; Admin Dose 40 MG; Start 06/24/18 at 06:00 Acetaminophen (Tylenol Tab) 650 mg Q6H PRN PO MILD PAIN(1-3)OR ELEVATED TEMP Last administered on 06/25/18at 02:48; Admin Dose 650 MG; Start 06/24/18 at 00:00 Ondansetron HCl (Zofran Inj) 4 mg Q6H PRN IV NAUSEA AND/OR VOMITING Last administered on 06/24/18at 15:55; Admin Dose 4 MG; Start 06/24/18 at 00:00 Acetaminophen/ Hydrocodone Bitart ([place] (5/325)) 1 tab Q6H PRN PO MODERATE PAIN LEVEL 4-6; Start 06/24/18 at 00:00 Losartan Potassium (Cozaar) 100 mg DAILY PO Last administered on 06/27/18at 08:19; Admin Dose 100 MG; Start 06/24/18 at 09:00 Gabapentin (Neurontin) 300 mg BID PRN PO MUSCLE AND LEG CRAMPS; Start 06/24/18 at 00:00 Diagnostic Test (Pha) (Accu-Chek) 1 ea 02 XX Last administered on 06/26/18at 02:50; Admin Dose 1 EA; Start 06/24/18 at 02:00 Insulin Aspart (Novolog Insulin Pen) NOVOLOG *MODERATE* ALGORITHM WITH MEALS BEDTIME SC Last administered on 06/27/18at 12:05; Admin Dose 2 UNIT; Start 06/24/18 at 08:00 Miscellaneous Information 1 ea NOTE XX ; Start 06/24/18 at 01:00 Glucose (Glutose) 15 gm Q15M PRN PO DECREASED GLUCOSE; Start 06/24/18 at 01:00 Glucose (Glutose) 22.5 gm Q15M PRN PO DECREASED GLUCOSE; Start 06/24/18 at 01:00 Dextrose (D50w Syringe) 25 ml Q15M PRN IV DECREASED GLUCOSE; Start 06/24/18 at 01:00 Dextrose (D50w Syringe) 50 ml Q15M PRN IV DECREASED GLUCOSE; Start 06/24/18 at 01:00 Glucagon (Glucagen) 1 mg Q15M PRN IM DECREASED GLUCOSE; Start 06/24/18 at 01:00 Glucose (Glutose) 15 gm Q15M PRN BUCCAL DECREASED GLUCOSE; Start 06/24/18 at 01:00 Atorvastatin Calcium (Lipitor) 20 mg QHS PO Last administered on 06/26/18 21:20; Admin Dose 20 MG; Start 06/24/18 at 21:00 Gabapentin (Neurontin) 100 mg QPM PO Last administered on 06/26/18 21:20; Admin Dose 100 MG; Start 06/24/18 at 21:00 Insulin Glargine (Lantus) 30 units QPM SC Last administered on 06/26/18 21:23; Admin Dose 30 UNITS; Start 06/24/18 at 21:00 Latanoprost (Xalatan) 1 drop QHS BOTH EYES Last administered on 06/26/18 21:21; Admin Dose 1 DROP; Start 06/24/18 at 21:00 Aspirin (Halfprin) 81 mg DAILY PO Last administered on 06/27/18 08:20; Admin Dose 81 MG; Start 06/24/18 at 12:00 Albuterol/ Ipratropium (Duoneb) 3 ml Q4HWA RESP THERAPY HHN Last administered on 06/27/18 13:17; Admin Dose 3 ML; Start 06/24/18 at 17:00 Clonidine (Catapres) 0.1 mg Q6H PRN PO ELEVATED BLOOD PRESSURE Last administered on 06/26/18 09:02; Admin Dose 0.1 MG; Start 06/24/18 at 16:30 Insulin Aspart (Novolog Insulin Pen) 4 unit WITH MEALS SC Last administered on 06/27/18 12:05; Admin Dose 4 UNIT; Start 06/25/18 at 18:00 Enoxaparin Sodium (Lovenox) 60 mg BID SC Last administered on 5/10/19at 08:26; Admin Dose 60 MG; Start 06/25/18 at 21:00 Diltiazem HCl (Cardizem Iv) 5 mg Q3H PRN IV INCREASED HEART RATE; Start 06/25/18 at 19:00 Metoprolol Tartrate (Lopressor) 75 mg BID PO Last administered on 06/27/18at 08:20; Admin Dose 75 MG; Start 06/26/18 at 21:00 Ertapenem 1 gm/ Sodium Chloride 100 ml @ 200 mls/hr Q24H IVPB ; Start 06/27/18 at 15:00 SHIVAM ROQUE June 27, 2018 15:11
[2018-06-27] MEDS: ERTAPENEM SODIUM 1 GM in SOD CHLORIDE 0.9% 100 ML IVPB SCH (15:12)
[2018-06-27] MEDS: APIXABAN 5 MG TABLET PO SCH (21:18)
[2018-06-27] MEDS: AMLODIPINE 5 MG TAB PO SCH (21:18)
[2018-06-27] MEDS: LATANOPROST 0.005% 2.5 ML OPH BOTH EYES SCH (21:18)
[2018-06-27] MEDS: ATORVASTATIN 20 MG TAB PO SCH (21:19)
[2018-06-27] MEDS: GABAPENTIN 100 MG CAP PO SCH (21:19)
[2018-06-27] MEDS: INSULIN GLARGINE [LANTus] (100 UNITS/ML) SYG SC SCH (21:43)
[2018-06-28] VITALS (10 sets, daily range): BP systolic 160–173; BP diastolic 74–77; PULSE 74–93; RESP 18–20
[2018-06-28] MEDS: ACCU-CHEK XX SCH (02:06)
[2018-06-28] MEDS: PANTOPRAZOLE (EC) 40 MG TAB PO SCH (06:15)
[2018-06-28] MEDS: INSULIN ASPART [NOVOLOG] 3 ML PEN SC SCH ×4 (08:00→14:12)
--- NOTE | 2018-06-28 08:27 | CONS ---
DATE OF ADMISSION: 06/23/2018 DATE OF CONSULTATION: The patient had an uneventful evening. She is not having any abdominal or back pain. She is current ly having breakfast in bed. There is no noted nausea or vomiting. She is voiding well. VITAL SIGNS: Blood pressure 173/77, temperature 98.9, heart rate 79, respiration rate 20. ABDOMEN: Soft, nondistended, nontender, no palpable masses. FLANK: No CVA tenderness, no masses. Creatinine 0.75. IMPRESSION: Left hydronephrosis. A urine culture at 48 hours negative. Blood culture 3 days negati ve. PLAN: Await results of CT scan of abdomen and pelvis. Further intervention evaluation pending clini conner course and results of both. Dictated By: ISA WRIGHT MD EGR/NTS Conf#: [id number] DID#: [id number] CC: CHRISTAL REEDER MD;*EndCC*
[2018-06-28] MEDS: ALBUTEROL/IPRATROPIUM (NEB) 3 ML AMP HHN SCH ×2 (10:18→13:51)
[2018-06-28] MEDS: APIXABAN 5 MG TABLET PO SCH (10:28)
[2018-06-28] MEDS: AMLODIPINE 5 MG TAB PO SCH (10:29)
[2018-06-28] MEDS: METOPROLOL 25 MG TAB PO SCH (10:29)
[2018-06-28] MEDS: LOSARTAN 50 MG TAB PO SCH (10:30)
[2018-06-28] MEDS: ASPIRIN (EC) 81 MG TAB PO SCH (10:30)
--- NOTE | 2018-06-28 13:04 | DS ---
Date/Time of Note Date/Time of Note DATE: 06/28/18 TIME: 13:03 Discharge Summary Admission/Discharge Info Admit Date/Time June 23, 2018 at 22:54 Discharge Date/Time Discharge Diagnosis Sepsis Patient Condition: Stable Consults Dr León, cardiology, dr Isaac urology, dr Hobbs ID Procedures echocardiogram Hospital Course This is a 68-year-old female with a past medical history of diabetes, hypertension, hyperlipidemia, who was transferred from [facility] secondary to sepsis. According to the patient who was brought in by the daughter, the patient was having some weakness and chills for the past few days. The patient was also having some cough with no sputum production for the past few days. The patient denied any nausea, vomiting, diarrhea. She went to [facility]. Labs showed sodium of 132, potassium was 4.2, chloride 96, bicarbonate 22, BUN of 22, creatinine 1.23. White count was 20.2, hemoglobin 11.2, platelet count 326. The patient had a chest x-ray that was negative for any pneumonia. UA had showed 100 protein, 1+ blood, 150 glucose. The patient was given IV fluids, Rocephin and was transferred due to insurance reasons. PAST MEDICAL HISTORY 1. Diabetes for the last 40 years. 2. Hypertension. 3. Hyperlipidemia. 4. Diabetic neuropathy. 5. History of hyponatremia. ALLERGIES: NONE. MEDICATIONS TAKING AT HOME: 1. Atorvastatin 20. 2. Losartan. 3. Metoprolol 50. 4. Aspirin 81. 5. Gabapentin. 6. Ibuprofen. 7. Lasix 20. 8. Latanoprost eyedrops. 9. Lantus 30 q.p.m. 10. Metformin. 11. Januvia. 12. Humalog. Dx:1. Sepsis, likely secondary to urinary tract infection. no cx +positive so far 2. Cough, now with sob , crackles on exam ? hx TB in past 3. Urinary tract infection. Urine culture from another facility grew E. coli ESBL, susceptible to Zosyn and Invanz. 4. History of diabetes. 5. Hypertension. 6. Fever secondary to #1. 7. Hyperlipidemia. 8. History of diabetic neuropathy. 9. History of hyponatremia. 10 Paroxysmal A. fib 11. Anemia During hospitalization pt was given iv Ertapenem per ID consult dr hobbs. She was in telemetry unit, where her rhythm was followed closely. Dr León, cardiology was called due to new Afib, pt was started on Lovenox and then switched to Eliquiz. He recommended better hypertensive control. Pt was on 1800 ADA diet and we followed with hypoglycemic control. US abdomen was doen and we notified with hydronephrosis. Dr Isaac urology was called and he ordered CT a+p for hydronephrosis, that was negative. It revealed: Symmetric appearance of the kidneys without current evidence of hydronephrosis or secondary signs of urinary tract obstruction, nor urinary tract stone. Minimal bilateral perinephric stranding/sweating is noted, and nonspecific, although can be seen in the setting of renal failure, without evidence of perinephric fluid collection/abscess present. No evidence of intestinal obstruction or appendicitis, free air or abscess. pt was d/c home with new medication Eliquiz and recommendation to control her DM type II. She will be given IV for 5 more days per ID recommendation it is Ertapenem. Home Meds Active Scripts Apixaban* (Eliquis*) 5 Mg Tablet, 5 MG PO BID for 10 Days, TAB Prov:SHIVAM ROQUE 06/28/18 Clonidine Hcl* (Catapres*) 0.1 Mg Tablet, 0.1 MG PO Q6H PRN for ELEVATED BLOOD PRESSURE for 30 Days, TAB Prov:SHIVAM ROQUE 06/28/18 Metoprolol Tartrate* (Lopressor*) 25 Mg Tab, 75 MG PO BID for 30 Days, TAB Prov:SHIVAM ROQUE 06/28/18 Amlodipine Besylate* (Amlodipine Besylate*) 5 Mg Tablet, 5 MG PO BID for 30 Days, TAB Prov:SHIVAM ROQUE 06/28/18 Ibuprofen* (Motrin*) 400 Mg Tab, 400 MG PO Q6H PRN for PAIN AND OR ELEVATED TEMP, #30 TAB Prov:LYNETTE GARRETT MD 07/10/17 Reported Medications Latanoprost (Latanoprost) 2.5 Ml Drops, 1 DROP BOTH EYES QHS, #1 BOTTLE 06/24/18 Gabapentin* (Gabapentin*) 300 Mg Capsule, 300 MG PO BID PRN for muscle and leg cramps, #60 CAP 06/24/18 Atorvastatin Calcium* (Atorvastatin Calcium*) 20 Mg Tablet, 20 MG PO QHS, #30 TAB 06/24/18 Aspirin* (Aspirin* EC) 81 Mg Tablet.dr, 81 MG PO DAILY, TAB 06/24/18 Losartan Potassium* (Losartan Potassium*) 100 Mg Tablet, 100 MG PO DAILY, TAB 06/24/18 Sitagliptin* (Januvia*) 100 Mg Tablet, 100 MG PO DAILY, #30 TAB 06/24/18 Metformin Hcl* (Metformin Hcl*) 500 Mg Tablet, 500 MG PO WITH BREAKFAST DINNE, #60 TAB 06/24/18 Aspirin* (Aspirin* Chew) Unknown Strength Tab.chew, PO DAILY, TAB.CHEW 07/10/17 Insulin Glargine* (Lantus*) 100 Unit/Ml Soln, 30 UNIT SC QPM, #1 VIAL 04/24/16 Discontinued Reported Medications Furosemide* (Furosemide*) 20 Mg Tablet, 20 MG PO DAILY, #60 TAB 06/24/18 Metoprolol Tartrate* (Lopressor*) 50 Mg Tab, 50 MG PO DAILY, #60 TAB 06/24/18 Losartan Potassium* (Losartan Potassium*) Unknown Strength Tablet, PO DAILY, TAB 07/10/17 Metformin Hcl* (Metformin Hcl* ER) Unknown Strength Tab.sr.24h, PO DAILY, #30 TAB 07/10/17 Gabapentin* (Gabapentin*) 100 Mg Capsule, 100 MG PO QPM, #90 CAP 04/24/16 Amoxicillin/Potassium Clav (Amox-Clav 875-125 mg Tablet) 875-125 mg Tab, 1 TAB PO BID, #20 TAB 04/24/16 Metoprolol Tartrate* (Lopressor*) 50 Mg Tab, 50 MG PO BID, #60 TAB 04/24/16 Sitagliptin* (Januvia*) 100 Mg Tablet, 100 MG PO DAILY, #30 TAB 04/24/16 Discontinued Scripts Cephalexin* (Keflex*) 500 Mg Capsule, 500 MG PO TID for 14 Days, CAP Prov:LYNETTE GARRETT MD 07/10/17 Follow-up Plan PCP 1 week Primary Care Provider Not On Staff Doctor Time spent on discharge: < 30 minutes Pending Labs Laboratory Tests Test 06/27/18 17:34 06/27/18 21:25 06/28/18 02:05 06/28/18 05:23 Bedside 130 188 120 Glucose mg/dL (70-220) mg/dL (70-220) mg/dL (70-220) White Blood 9.5 Count 10^3/ul (4.8-1 0.8) Red Blood 3.26 Count 10^6/ul (4.20- 5.40) Hemoglobin 9.2 g/dl (12.0-16. 0) Hematocrit 27.7 % (37.0-47.0) Mean 85.0 Corpuscular fl (82.0-101.0 Volume ) Mean 28.2 Corpuscular pg (29.0-33.0) Hemoglobin Mean 33.2 Corpuscular g/dl (32.0-37. Hemoglobin Conc 0) ent Red Cell 13.1 Distribution % (11.5-14.5) Width Platelet Count 319 10^3/UL (140-4 15) Mean Platelet 8.9 Volume fl (7.4-10.4) Immature 0.800 Granulocytes % % (0.001-0.429 ) Neutrophils % 63.8 % (39.0-77.0) Lymphocytes % 19.9 % (15.0-51.0) Monocytes % 13.9 % (0.0-11.0) Eosinophils % 1.3 % (0.0-7.0) Basophils % 0.3 % (0.0-2.0) Nucleated Red 0.0 Blood Cells % /100WBC (0.0-0 .0) Immature 0.080 Granulocytes # 10^3/ul (0.0-0 .031) Neutrophils # 6.0 10^3/ul (1.6-7 .5) Lymphocytes # 1.9 10^3/ul (0.8-2 .9) Monocytes # 1.3 10^3/ul (0.3-0 .9) Eosinophils # 0.1 10^3/ul (0.0-0 .5) Basophils # 0.0 10^3/ul (0.0-0 .1) Nucleated Red 0.0 Blood Cells # 10^3/ul (0.0-0 .0) Sodium Level 140 mmol/L (135-14 4) Potassium 4.0 Level mmol/L (3.5-5. 1) Chloride Level 107 mmol/L (97-110 ) Carbon Dioxide 25 Level mmol/L (21-31) Anion Gap 8 (5-13) Blood Urea 8 mg/dl (7-20) Nitrogen Creatinine 0.75 mg/dl (0.44-1. 00) Est Glomerular > 60 Filtrat mL/min (>60) Rate mL/min Glucose Level 138 mg/dl (70-220) Hemoglobin A1c 9.4 % (0-5.9) Calcium Level 9.1 mg/dl (8.4-10. 2) Test 06/28/18 07:29 06/28/18 11:59 Bedside 137 169 Glucose mg/dL (70-220) mg/dL (70-220) SHIVAM ROQUE June 28, 2018 13:04
--- NOTE | 2018-06-28 13:15 | CONS ---
Consult Date/Type/Reason Admit Date/Time June 23, 2018 at 22:54 Initial Consult Date Requesting Provider: MARIZA BARRERA MD Date/Time of Note DATE: 06/28/18 TIME: 13:12 Subjective NO acute events - BP in good range - NO CP now - will monitor clinically. Feels better now. ROS: No fever, no chills, no nausea, no vomiting, no diarrhea/constipation - feels better now Objective Vitals Vital Signs Date Temp Pulse Resp B/P (MAP) Pulse Ox O2 O2 Flow FiO2 Time Delivery Rate 06/28/18 98.2 93 18 160/77 97 11:31 (104) 06/28/18 21 10:19 06/25/18 Room Air 07:12 Intake and Output 06/27/18 06/27/18 06/28/18 1515:00 23:00 07:00 IntakeIntake Total 100 ml 900 ml 600 ml BalanceBalance 100 ml 900 ml 600 ml Exam General: WN/WD/NAD, AOx 3 HEENT: Unicetric/atraumatic/EOMI (follows commands) NECK: JVD elevated, no thyromegaly Lymph: no lymphadenopathy HEART: regular with no S3, II/ systolic murmur at apex, mild SOB LUNGS: Coarse sounds ABD: soft, NT, ND, +BS : Intact Neuro: non focal SKIN: chronic changes EXT: trace edema Results/Medications Result Diagram: 06/28/1852206/28/18522 Results 24 hrs Laboratory Tests Test 06/27/18 17:34 06/27/18 21:25 06/28/18 02:05 06/28/18 05:23 Bedside Glucose 130 188 120 White Blood Count 9.5 Red Blood Count 3.26 L Hemoglobin 9.2 L Hematocrit 27.7 L Mean Corpuscular 85.0 Volume Mean Corpuscular 28.2 L Hemoglobin Mean Corpuscular 33.2 Hemoglobin Concent Red Cell 13.1 Distribution Width Platelet Count 319 Mean Platelet Volume 8.9 Immature 0.800 H Granulocytes % Neutrophils % 63.8 Lymphocytes % 19.9 Monocytes % 13.9 H Eosinophils % 1.3 Basophils % 0.3 Nucleated Red Blood 0.0 Cells % Immature 0.080 H Granulocytes # Neutrophils # 6.0 Lymphocytes # 1.9 Monocytes # 1.3 H Eosinophils # 0.1 Basophils # 0.0 Nucleated Red Blood 0.0 Cells # Sodium Level 140 Potassium Level 4.0 Chloride Level 107 Carbon Dioxide Level 25 Anion Gap 8 Blood Urea Nitrogen 8 Creatinine 0.75 Est Glomerular > 60 Filtrat Rate mL/min Glucose Level 138 Hemoglobin A1c 9.4 H Calcium Level 9.1 Test 06/28/18 07:29 06/28/18 11:59 Bedside Glucose 137 169 Home Meds Active Scripts Ibuprofen* (Motrin*) 400 Mg Tab, 400 MG PO Q6H PRN for PAIN AND OR ELEVATED TEMP, #30 TAB Prov:LYNETTE GARRETT MD 07/10/17 Cephalexin* (Keflex*) 500 Mg Capsule, 500 MG PO TID for 14 Days, CAP Prov:LYNETTE GARRETT MD 07/10/17 Reported Medications Latanoprost (Latanoprost) 2.5 Ml Drops, 1 DROP BOTH EYES QHS, #1 BOTTLE 06/24/18 Furosemide* (Furosemide*) 20 Mg Tablet, 20 MG PO DAILY, #60 TAB 06/24/18 Gabapentin* (Gabapentin*) 300 Mg Capsule, 300 MG PO BID PRN for muscle and leg cramps, #60 CAP 06/24/18 Atorvastatin Calcium* (Atorvastatin Calcium*) 20 Mg Tablet, 20 MG PO QHS, #30 TAB 06/24/18 Aspirin* (Aspirin* EC) 81 Mg Tablet.dr, 81 MG PO DAILY, TAB 06/24/18 Metoprolol Tartrate* (Lopressor*) 50 Mg Tab, 50 MG PO DAILY, #60 TAB 06/24/18 Losartan Potassium* (Losartan Potassium*) 100 Mg Tablet, 100 MG PO DAILY, TAB 06/24/18 Sitagliptin* (Januvia*) 100 Mg Tablet, 100 MG PO DAILY, #30 TAB 06/24/18 Metformin Hcl* (Metformin Hcl*) 500 Mg Tablet, 500 MG PO WITH BREAKFAST DINNE, #60 TAB 06/24/18 Aspirin* (Aspirin* Chew) Unknown Strength Tab.chew, PO DAILY, TAB.CHEW 07/10/17 Losartan Potassium* (Losartan Potassium*) Unknown Strength Tablet, PO DAILY, TAB 07/10/17 Metformin Hcl* (Metformin Hcl* ER) Unknown Strength Tab.sr.24h, PO DAILY, #30 TAB 07/10/17 Gabapentin* (Gabapentin*) 100 Mg Capsule, 100 MG PO QPM, #90 CAP 04/24/16 Insulin Glargine* (Lantus*) 100 Unit/Ml Soln, 30 UNIT SC QPM, #1 VIAL 04/24/16 Amoxicillin/Potassium Clav (Amox-Clav 875-125 mg Tablet) 875-125 mg Tab, 1 TAB PO BID, #20 TAB 04/24/16 Metoprolol Tartrate* (Lopressor*) 50 Mg Tab, 50 MG PO BID, #60 TAB 04/24/16 Sitagliptin* (Januvia*) 100 Mg Tablet, 100 MG PO DAILY, #30 TAB 04/24/16 Medications Current Medications Pantoprazole (Protonix Tab) 40 mg DAILY@06 PO Last administered on 06/28/18at 06:15; Admin Dose 40 MG; Start 06/24/18 at 06:00 Acetaminophen (Tylenol Tab) 650 mg Q6H PRN PO MILD PAIN(1-3)OR ELEVATED TEMP Last administered on 06/25/18at 02:48; Admin Dose 650 MG; Start 06/24/18 at 00:00 Ondansetron HCl (Zofran Inj) 4 mg Q6H PRN IV NAUSEA AND/OR VOMITING Last administered on 06/24/18at 15:55; Admin Dose 4 MG; Start 06/24/18 at 00:00 Acetaminophen/ Hydrocodone Bitart ([place] (5/325)) 1 tab Q6H PRN PO MODERATE PAIN LEVEL 4-6; Start 06/24/18 at 00:00 Losartan Potassium (Cozaar) 100 mg DAILY PO Last administered on 06/28/18at 10:30; Admin Dose 100 MG; Start 06/24/18 at 09:00 Gabapentin (Neurontin) 300 mg BID PRN PO MUSCLE AND LEG CRAMPS; Start 06/24/18 at 00:00 Diagnostic Test (Pha) (Accu-Chek) 1 ea 02 XX Last administered on 06/28/18at 02:06; Admin Dose 1 EA; Start 06/24/18 at 02:00 Insulin Aspart (Novolog Insulin Pen) NOVOLOG *MODERATE* ALGORITHM WITH MEALS BEDTIME SC Last administered on 06/27/18at 21:45; Admin Dose 1 UNIT; Start 06/24/18 at 08:00 Miscellaneous Information 1 ea NOTE XX ; Start 06/24/18 at 01:00 Glucose (Glutose) 15 gm Q15M PRN PO DECREASED GLUCOSE; Start 06/24/18 at 01:00 Glucose (Glutose) 22.5 gm Q15M PRN PO DECREASED GLUCOSE; Start 06/24/18 at 01:00 Dextrose (D50w Syringe) 25 ml Q15M PRN IV DECREASED GLUCOSE; Start 06/24/18 at 01:00 Dextrose (D50w Syringe) 50 ml Q15M PRN IV DECREASED GLUCOSE; Start 06/24/18 at 01:00 Glucagon (Glucagen) 1 mg Q15M PRN IM DECREASED GLUCOSE; Start 06/24/18 at 01:00 Glucose (Glutose) 15 gm Q15M PRN BUCCAL DECREASED GLUCOSE; Start 06/24/18 at 01:00 Atorvastatin Calcium (Lipitor) 20 mg QHS PO Last administered on 06/27/18 21:19; Admin Dose 20 MG; Start 06/24/18 at 21:00 Gabapentin (Neurontin) 100 mg QPM PO Last administered on 06/27/18 21:19; Admin Dose 100 MG; Start 06/24/18 at 21:00 Insulin Glargine (Lantus) 30 units QPM SC Last administered on 06/27/18 21:43; Admin Dose 30 UNITS; Start 06/24/18 at 21:00 Latanoprost (Xalatan) 1 drop QHS BOTH EYES Last administered on 06/27/18 21:18; Admin Dose 1 DROP; Start 06/24/18 at 21:00 Aspirin (Halfprin) 81 mg DAILY PO Last administered on 06/28/18 10:30; Admin Dose 81 MG; Start 06/24/18 at 12:00 Albuterol/ Ipratropium (Duoneb) 3 ml Q4HWA RESP THERAPY HHN Last administered on 06/28/18 10:18; Admin Dose 3 ML; Start 06/24/18 at 17:00 Clonidine (Catapres) 0.1 mg Q6H PRN PO ELEVATED BLOOD PRESSURE Last administered on 06/26/18 09:02; Admin Dose 0.1 MG; Start 06/24/18 at 16:30 Insulin Aspart (Novolog Insulin Pen) 4 unit WITH MEALS SC Last administered on 06/28/18 10:45; Admin Dose 4 UNIT; Start 06/25/18 at 18:00 Diltiazem HCl (Cardizem Iv) 5 mg Q3H PRN IV INCREASED HEART RATE; Start 06/25/18 at 19:00 Metoprolol Tartrate (Lopressor) 75 mg BID PO Last administered on 06/28/18at 10:29; Admin Dose 75 MG; Start 06/26/18 at 21:00 Ertapenem 1 gm/ Sodium Chloride 100 ml @ 200 mls/hr Q24H IVPB Last administered on 06/27/18at 15:12; Admin Dose 200 MLS/HR; Start 06/27/18 at 15:00 Amlodipine Besylate (Norvasc) 5 mg BID PO Last administered on 06/28/18at 10:29; Admin Dose 5 MG; Start 06/27/18 at 21:00 Apixaban (Eliquis) 5 mg BID PO Last administered on 06/28/18at 10:28; Admin Dose 5 MG; Start 06/27/18 at 21:00 Assessment/Plan Hospital Course (Demo Recall) 1. Abnormal electrocardiogram, assess for acute coronary syndrome.-NL EF by echo this admit - r/o PA - doubt ischemia. In good fluid status now. 2. Hypertension, mildly elevated - still high, con't to adjust Rx - will monitor clinically now. 3. Shortness of breath, assess for congestive heart failure - better now. Mild SOB. 4. Questionable urinary tract infection - primary follows, WBC better now at 9.5. 5. Fevers- no new episodes now. 6. Generalized weakness. 7. Leukocytosis. 8. Diabetes mellitus- on meds. 9. PAF-in SR currently - con't anti-coagulation - rate controlled. SHRADDHA RAMIREZ MD June 28, 2018 13:15
--- NOTE | 2018-06-28 13:19 | CONS ---
Assessment/Plan Assessment/Plan Hospital Course (Demo Recall) ID PROGRESS NOTE CURRENT ABX: DAY # =>ERTAPENEM #2 24H INTERVAL SUMMARY * Resting comfortably, VSS, no fevers,NAD * Chest x-ray revealed bibasilar atelectasis mild cardiomegaly with aortic atherosclerosis. Renal ultrasound revealed mild left-sided hydronephrosis MICRO/OTHER * Microbiology: Blood cultures remain negative, urine culture from another facility grew E. coli ESBL, susceptible to Zosyn and Invanz PHYSICAL EXAMINATION: GENERAL: VSS, NAD HEENT: AT, NC, anicteric, NECK: Supple, CHEST: Equal chest rise bilaterally, without dyspnea on observation HEART: Pulse RRR ABDOMEN: Soft / NT EXTREMITIES: Warm, dry SKIN: No rash, no diaphoresis ID ASSESSMENT 68 yo F admit with: 1. Sepsis present on admission secondary to urinary tract infection => RESOLVED * urine culture from another facility grew E. coli ESBL 2. Pyelonephritis w/Left-sided hydronephrosis 3. Possible pneumonia 4. Diabetes 5. Hypertension (-)MRSA Nares ABX ALLERGIES: KNDA INVASIVES: PIV CURRENT ABX: DAY # > ERTAPENEM #2 ID RECOMMENDATIONS/PLAN: 1. Continue current ABX == may DC on Ertapenem x 6 days when cleared by primary. . Consultation Date/Type/Reason Admit Date/Time June 23, 2018 at 22:54 Initial Consult Date Requesting Provider: MARIZA BARRERA MD Date/Time of Note DATE: 06/28/18 TIME: 13:18 Exam/Review of Systems Exam Vitals Vital Signs Date Temp Pulse Resp B/P (MAP) Pulse Ox O2 O2 Flow FiO2 Time Delivery Rate 06/28/18 98.2 93 18 160/77 97 11:31 (104) 06/28/18 21 10:19 06/25/18 Room Air 07:12 Intake and Output 06/27/18 06/27/18 06/28/18 1515:00 23:00 07:00 IntakeIntake Total 100 ml 900 ml 600 ml BalanceBalance 100 ml 900 ml 600 ml Results Result Diagram: 06/28/18 0523 06/28/18 0523 Results 24hrs Laboratory Tests Test 06/27/18 17:34 06/27/18 21:25 06/28/18 02:05 06/28/18 05:23 Bedside Glucose 130 188 120 White Blood Count 9.5 Red Blood Count 3.26 L Hemoglobin 9.2 L Hematocrit 27.7 L Mean Corpuscular 85.0 Volume Mean Corpuscular 28.2 L Hemoglobin Mean Corpuscular 33.2 Hemoglobin Concent Red Cell 13.1 Distribution Width Platelet Count 319 Mean Platelet Volume 8.9 Immature 0.800 H Granulocytes % Neutrophils % 63.8 Lymphocytes % 19.9 Monocytes % 13.9 H Eosinophils % 1.3 Basophils % 0.3 Nucleated Red Blood 0.0 Cells % Immature 0.080 H Granulocytes # Neutrophils # 6.0 Lymphocytes # 1.9 Monocytes # 1.3 H Eosinophils # 0.1 Basophils # 0.0 Nucleated Red Blood 0.0 Cells # Sodium Level 140 Potassium Level 4.0 Chloride Level 107 Carbon Dioxide Level 25 Anion Gap 8 Blood Urea Nitrogen 8 Creatinine 0.75 Est Glomerular > 60 Filtrat Rate mL/min Glucose Level 138 Hemoglobin A1c 9.4 H Calcium Level 9.1 Test 06/28/18 07:29 06/28/18 11:59 Bedside Glucose 137 169 Medications Medication Current Medications Pantoprazole (Protonix Tab) 40 mg DAILY@06 PO Last administered on 06/28/18at 06:15; Admin Dose 40 MG; Start 06/24/18 at 06:00 Acetaminophen (Tylenol Tab) 650 mg Q6H PRN PO MILD PAIN(1-3)OR ELEVATED TEMP Last administered on 06/25/18at 02:48; Admin Dose 650 MG; Start 06/24/18 at 00:00 Ondansetron HCl (Zofran Inj) 4 mg Q6H PRN IV NAUSEA AND/OR VOMITING Last administered on 06/24/18at 15:55; Admin Dose 4 MG; Start 06/24/18 at 00:00 Acetaminophen/ Hydrocodone Bitart ([place] (5/325)) 1 tab Q6H PRN PO MODERATE PAIN LEVEL 4-6; Start 06/24/18 at 00:00 Losartan Potassium (Cozaar) 100 mg DAILY PO Last administered on 06/28/18at 10 :30; Admin Dose 100 MG; Start 06/24/18 at 09:00 Gabapentin (Neurontin) 300 mg BID PRN PO MUSCLE AND LEG CRAMPS; Start 06/24/18 at 00:00 Diagnostic Test (Pha) (Accu-Chek) 1 ea 02 XX Last administered on 06/28/18at 02:06; Admin Dose 1 EA; Start 06/24/18 at 02:00 Insulin Aspart (Novolog Insulin Pen) NOVOLOG *MODERATE* ALGORITHM WITH MEALS BEDTIME SC Last administered on 06/27/18 21:45; Admin Dose 1 UNIT; Start 06/24/18 at 08:00 Miscellaneous Information 1 ea NOTE XX ; Start 06/24/18 at 01:00 Glucose (Glutose) 15 gm Q15M PRN PO DECREASED GLUCOSE; Start 06/24/18 at 01:00 Glucose (Glutose) 22.5 gm Q15M PRN PO DECREASED GLUCOSE; Start 06/24/18 at 01:00 Dextrose (D50w Syringe) 25 ml Q15M PRN IV DECREASED GLUCOSE; Start 06/24/18 at 01:00 Dextrose (D50w Syringe) 50 ml Q15M PRN IV DECREASED GLUCOSE; Start 06/24/18 at 01:00 Glucagon (Glucagen) 1 mg Q15M PRN IM DECREASED GLUCOSE; Start 06/24/18 at 01:00 Glucose (Glutose) 15 gm Q15M PRN BUCCAL DECREASED GLUCOSE; Start 06/24/18 at 01:00 Atorvastatin Calcium (Lipitor) 20 mg QHS PO Last administered on 06/27/18 21:19; Admin Dose 20 MG; Start 06/24/18 at 21:00 Gabapentin (Neurontin) 100 mg QPM PO Last administered on 06/27/18 21:19; Admin Dose 100 MG; Start 06/24/18 at 21:00 Insulin Glargine (Lantus) 30 units QPM SC Last administered on 06/27/18 21:43; Admin Dose 30 UNITS; Start 06/24/18 at 21:00 Latanoprost (Xalatan) 1 drop QHS BOTH EYES Last administered on 06/27/18 21:18; Admin Dose 1 DROP; Start 06/24/18 at 21:00 Aspirin (Halfprin) 81 mg DAILY PO Last administered on 06/28/18 10:30; Admin Dose 81 MG; Start 06/24/18 at 12:00 Albuterol/ Ipratropium (Duoneb) 3 ml Q4HWA RESP THERAPY HHN Last administered on 06/28/18 10:18; Admin Dose 3 ML; Start 06/24/18 at 17:00 Clonidine (Catapres) 0.1 mg Q6H PRN PO ELEVATED BLOOD PRESSURE Last administered on 06/26/18 09:02; Admin Dose 0.1 MG; Start 06/24/18 at 16:30 Insulin Aspart (Novolog Insulin Pen) 4 unit WITH MEALS SC Last administered on 06/28/18 10:45; Admin Dose 4 UNIT; Start 06/25/18 at 18:00 Diltiazem HCl (Cardizem Iv) 5 mg Q3H PRN IV INCREASED HEART RATE; Start 06/25/18 at 19:00 Metoprolol Tartrate (Lopressor) 75 mg BID PO Last administered on 06/28/18 10:29; Admin Dose 75 MG; Start 06/26/18 at 21:00 Ertapenem 1 gm/ Sodium Chloride 100 ml @ 200 mls/hr Q24H IVPB Last ad ministered on 06/27/18at 15:12; Admin Dose 200 MLS/HR; Start 06/27/18 at 15:00 Amlodipine Besylate (Norvasc) 5 mg BID PO Last administered on 06/28/18 10:29; Admin Dose 5 MG; Start 06/27/18 at 21:00 Apixaban (Eliquis) 5 mg BID PO Last administered on 06/28/18 10:28; Admin Dose 5 MG; Start 06/27/18 at 21:00 FELICIANO WALTER NP June 28, 2018 13:19
--- NOTE | 2018-06-28 13:34 | PDOCDIS ---
Discharge Instructions CONDITION [id number] Patient Condition: [id number] Stable HOME CARE INSTRUCTIONS: [id number] Diet Instructions: [id number] Activity Restrictions: [id number] Slowly Increase Activity Rest between Activity Avoid heavy lifting FOLLOW UP/APPOINTMENTS Follow-up Plan PCP [address] Vilchis, cardiology f/up 2 week SCHOOL/WORK RELEASE May return to School/Work with: With Restrictions SHIVAM ROQUE June 28, 2018 13:34
[2018-06-28] MEDS ORDERED: METO-448 PO (13:39)
[2018-06-28] MEDS ORDERED: APIX5TAB PO (13:39)
[2018-06-28] MEDS ORDERED: CLON0.1T14 PO (13:39)
[2018-06-28] MEDS ORDERED: AMLO-145 PO (13:39)
--- NOTE | 2018-06-28 13:50 | PDOCDIS ---
Discharge Instructions DIAGNOSIS Discharge Diagnosis UTI, new onset afib CONDITION [id number] Patient Condition: [id number] Stable HOME CARE INSTRUCTIONS: [id number] Diet Instructions: [id number] Activity Restrictions: [id number] Slowly Increase Activity Rest between Activity Avoid heavy lifting FOLLOW UP/APPOINTMENTS Follow-up Plan PCP [address] Vilchis, cardiology f/up 2 week OTHER ORDERS: Other Orders: c/w Ertapenem IV for 5 more days , last mancera 06/28/2018 SCHOOL/WORK RELEASE May return to School/Work with: With Restrictions SHIVAM ROQUE June 28, 2018 13:50
[2018-06-28] MEDS: ERTAPENEM SODIUM 1 GM in SOD CHLORIDE 0.9% 100 ML IVPB SCH (15:30)
== END 2018-06-28 17:20 | disposition home health service (06) | DRG 872 ==
LOC: 6WM 22:54
PROVIDERS: ADMIT Internal Medicine Nephrology; ATTEND Internal Medicine Nephrology
DX: A41.9 Sepsis, unspecified organism (principal); N39.0 Urinary tract infection, site not specified; E11.40 Type 2 diabetes mellitus with diabetic neuropathy, unspecified; E78.5 Hyperlipidemia, unspecified; I10 Essential (primary) hypertension; B96.20 Unspecified Escherichia coli [E. coli] as the cause of diseases classified elsewhere; R05 Cough; Z79.4 Long term (current) use of insulin; Z79.82 Long term (current) use of aspirin; Z79.02 Long term (current) use of antithrombotics/antiplatelets
CPT/HCPCS: 71045; 74176; 76775; 80048; 80061; 81001; 82550; 82553; 82962; 83036; 83605; 83735; 84100; 84484; 85025; 87081; 87086; 93005; 93306; 94640; 94664; J1335; J1815; J1940; J2405; J2543; J3475; J7030